=== PATIENT | female | born 1990 | race Caucasian/White ===

== ENCOUNTER 2018-09-22 16:02 | Emergency (ER) | payer SELFPAY ==
[2018-09-22 17:10] LABS: Urine Appearance TURBID; Urine Bilirubin NEGATIVE (NEG); Urine Blood 3+ (NEG); Urine Glucose NEGATIVE (NEG); Urine Protein 3+ (NEG); Urine Specific Gravity >=1.030 (1.005-1.030); Urine pH 6.5 (5.0-7.0)
[2018-09-22 17:17] LABS: Protime INR 1.05
[2018-09-22 17:18] LABS: Urine Color RED; Urine Microscopic Reflex ORDER UMIC
[2018-09-22 17:20] LABS: Urine Bacteria 20-50 /HPF (<20); Urine RBC TNTC /HPF (NONE SEEN)
[2018-09-22 17:21] LABS: Urine Culture Reflex Order REFLEXED
[2018-09-22 17:23] LABS: Absolute Lymphocytes (CBC) 1.8 K/uL (0.7-4.9); Absolute Monocytes 0.3 K/uL (0.1-1.3); Absolute Neutrophil 2.9 K/uL (1.8-8.0); Basophils % 1.1 % (0-1.3); Eosinophils % 1.7 % (0-4.4); Hematocrit 38.9 % (36.0-45.0); Lymphocytes % 34.6 % (15.3-44.8); MCH 30.6 pg (27.0-35.0); MCV 90.2 fL (80-100); MPV 8.6 fL (7.6-11.3); Monocytes % 6.4 % (3.3-12.3); RBC Red Blood Cell Count 4.32 M/uL (3.86-4.86)
[2018-09-22 17:28] LABS: ALT/SGPT 20 U/L (12-78); AST/SGOT 12 U/L (15-37); Albumin 3.9 g/dL (3.4-5.0); Alkaline Phosphatase 59 U/L (45-117); BUN Blood Urea Nitrogen 16 mg/dL (7-18); Bicarbonate 30 mmol/L (21-32); Bilirubin Direct 0.1 mg/dL (0-0.2); Bilirubin Total 0.4 mg/dL (0.2-1.0); CKMB Creatine Kinase MB < 1.0 ng/mL (0.3-3.6); Creatine Phosphokinase 79 U/L (26-192); Glucose Level 100 mg/dL (74-106); Lipase 203 U/L (73-393); Magnesium 2.4 mg/dL (1.8-2.4); Potassium 3.8 mmol/L (3.5-5.1); Protein, Total 7.1 g/dL (6.4-8.2); Sodium Level 141 mmol/L (136-145)
--- NOTE | 2018-09-22 18:22 | ER ---
Nurse's Notes [facility] Name: Suze Martinez Age: 28 yrs Sex: Female : 1990 Arrival Date: 09/22/2018 Time: 16:06 Bed 28 Private MD: Diagnosis: Hematuria, unspecified Presentation: 09/22 16:12 Presenting complaint: Patient states: "This morning I woke and when I went to the [facility] restroom it was just blood." Reports blood when she urinates but no drainage at other time. Patient states she has an IUD and hasn't had a period in years. Denies pain. Transition of care: patient was not received from another setting of care. Onset of symptoms was September 22, 2018. Risk Assessment: Do you want to hurt yourself or someone else? Patient reports no desire to harm self or others. Initial Sepsis Screen: Does the patient meet any 2 criteria? No. Patient's initial sepsis screen is negative. Does the patient have a suspected source of infection? No. Patient's initial sepsis screen is negative. Care prior to arrival: None. 16:12 Method Of Arrival: Ambulatory [facility] 16:12 Acuity: HANH 3 [facility] Triage Assessment: 16:14 General: Appears in no apparent distress. comfortable, Behavior is calm, cooperative, aj1 appropriate for age. Pain: Denies pain. Neuro: Level of Consciousness is awake, alert, obeys commands. Cardiovascular: Patient's skin is warm and dry. Respiratory: Airway is patent Respiratory effort is even, unlabored, Respiratory pattern is regular, symmetrical. : Reports bloody urine. 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 - Social history:: Smoking status: Patient/guardian denies using tobacco. - Ebola Screening: : Patient denies travel to an Ebola-affected area in the 21 days before illness onset. Screenin:30 Abuse screen: Denies threats or abuse. Denies injuries from another. Nutritional kr2 screening: No deficits noted. Tuberculosis screening: No symptoms or risk factors identified. Fall Risk None identified. Assessment: 16:30 General: Appears in no apparent distress. comfortable, well groomed, well developed, kr2 well nourished, Behavior is calm, cooperative, appropriate for age. Pain: Denies pain. Neuro: Level of Consciousness is awake, alert, obeys commands, Oriented to person, place, time, situation, Appropriate for age Import Specialist are equal bilaterally. Cardiovascular: Reports fatigue, Capillary refill < 3 seconds in bilateral fingers Patient's skin is warm and dry. Rhythm is regular. Respiratory: Airway is patent Respiratory effort is even, unlabored, Respiratory pattern is regular, symmetrical. GI: Abdomen is flat, non-distended, Abd is soft and non tender X 4 quads. : Urine is magy blood, Denies burning with urination, pain vaginal bleeding. EENT: Oral mucosa is moist. Derm: Skin is intact, is healthy with good turgor, Skin is pink, warm \\T\\ dry. Musculoskeletal: Circulation, motion, and sensation intact. 17:31 Reassessment: Patient appears in no apparent distress at this time. Patient and/or kr2 family updated on plan of care and expected duration. Pain level reassessed. Patient is alert, oriented x 3, equal unlabored respirations, skin warm/dry/pink. Patient denies pain at this time. 18:32 Reassessment: Patient appears in no apparent distress at this time. Patient and/or kr2 family updated on plan of care and expected duration. Pain level reassessed. Patient is alert, oriented x 3, equal unlabored respirations, skin warm/dry/pink. Patient denies pain at this time. Vital Signs: 16:14 BP 105 / 48; Pulse 79; Resp 18; Temp 98.3; Pulse Ox 100% on R/A; Weight 54.43 kg (R); aj1 Height 5 ft. 4 in. (162.56 cm) (R); Pain 0/10; 17:22 BP 103 / 62 Supine; Pulse 72; Resp 16; Pulse Ox 100% ; kr2 17:23 BP 107 / 66 Sitting; Pulse 75; Resp 16; Pulse Ox 100% ; kr2 17:24 BP 105 / 72 Standing; Pulse 76; Resp 18; Pulse Ox 100% ; kr2 18:32 BP 104 / 78; Pulse 73; Resp 17; Pulse Ox 99% on R/A; kr2 16:14 Body Mass Index 20.60 (54.43 kg, 162.56 cm) aj1 17:22 no dizziness or light headedness kr2 17:23 No dizziness or light headedness kr2 17:24 no dizziness or light headedness kr2 ED Course: 16:06 Patient arrived in ED. sb2 16:13 Triage completed. aj1 16:14 Arm band placed on Patient placed in an exam room. aj1 16:19 Joshua Flores PA is PHCP. cp 16:19 Simran Chow MD is Attending Physician. cp 16:30 Patient has correct armband on for positive identification. Bed in low position. Call kr2 light in reach. Side rails up X 1. Pulse ox on. NIBP on. Door closed. Head of bed elevated. 16:57 Inserted saline lock: 20 gauge in left antecubital area, using aseptic technique. Blood kr2 collected. 17:27 Migdalia Olguin, RN is Primary Nurse. kr2 18:21 Michel Joyce MD is Referral Physician. cp 18:33 No provider procedures requiring assistance completed. IV discontinued, intact, kr2 bleeding controlled, No redness/swelling at site. Pressure dressing applied. Administered Medications: No medications were administered Outcome: 18:22 Discharge ordered by . cp 18:33 Discharged to home ambulatory. kr2 18:33 Condition: stable 18:33 Discharge instructions given to patient, family, Instructed on discharge instructions, follow up and referral plans. medication usage, Demonstrated understanding of instructions, follow-up care, medications, Prescriptions given X 1. 18:36 Patient left the ED. kr2 Signatures: Francesca Miller, RN RN aj1 Joshua Flores PA PA cp Migdalia Olguin, RN RN kr2 Lexii Paulino sb2
--- NOTE | 2018-09-22 18:23 | EDPHYS ---
Physician Documentation [facility] Name: Suze Martinez Age: 28 yrs Sex: Female : 1990 Arrival Date: 09/22/2018 Time: 16:06 Bed 28 Private MD: ED Physician Simran Chow HPI: 09/22 16:35 This 28 yrs old Female presents to ER via Ambulatory with complaints of cp Urinary Problem. 16:35 The patient presents with urinary symptoms, hematuria. cp 16:35 Onset: The symptoms/episode began/occurred today. cp 16:35 Associated signs and symptoms: Pertinent negatives: dysuria, fever, nausea, vaginal cp bleeding, vaginal discharge, vomiting, back pain. 16:35 Severity of symptoms: in the emergency department the symptoms are unchanged, despite cp home interventions. The patient is sexually active. The patient's method of control includes IUD. 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 - Social history:: Smoking status: Patient/guardian denies using tobacco. - Ebola Screening: : Patient denies travel to an Ebola-affected area in the 21 days before illness onset. ROS: 16:42 Eyes: Negative for injury, pain, redness, and discharge. cp 16:42 Constitutional: Negative for body aches, chills, fever, poor PO intake. 16:42 ENT: Negative for drainage from ear(s), ear pain, sore throat, difficulty swallowing, difficulty handling secretions. 16:42 Cardiovascular: Negative for chest pain, edema, palpitations. 16:42 Respiratory: Negative for cough, shortness of breath, wheezing. 16:42 Abdomen/GI: Negative for abdominal pain, nausea, vomiting, and diarrhea, constipation, black/tarry stool, rectal bleeding. 16:42 Back: Negative for pain at rest, pain with movement, radiated pain. 16:42 : Positive for hematuria, Negative for urinary frequency, small amounts, pelvic pain, flank pain, burning with urination, difficulty urinating, vaginal bleeding, vaginal discharge. 16:42 Skin: Negative for cellulitis, rash. 16:42 Neuro: Negative for altered mental status, headache, syncope, near syncope, weakness. 16:42 All other systems are negative. Exam: 16:47 Constitutional: The patient appears in no acute distress, alert, awake, comfortable, cp non-toxic, well developed, well nourished. 16:47 Head/Face: Normocephalic, atraumatic. cp 16:47 Eyes: Periorbital structures: appear normal, Conjunctiva: normal, no exudate, no injection, Sclera: no appreciated abnormality, Lids and lashes: appear normal, bilaterally. 16:47 ENT: External ear(s): are unremarkable, Nose: is normal, Mouth: Lips: moist, Oral mucosa: pink and intact, moist, Posterior pharynx: is normal, airway is patent, no erythema, no exudate. 16:47 Chest/axilla: Inspection: normal, Palpation: is normal, no crepitus, no tenderness. 16:47 Cardiovascular: Rate: normal, Rhythm: regular. 16:47 Respiratory: the patient does not display signs of respiratory distress, Respirations: normal, no use of accessory muscles, no retractions, no splinting, no tachypnea, labored breathing, is not present, Breath sounds: are clear throughout, no decreased breath sounds, no stridor, no wheezing. 16:47 Abdomen/GI: Inspection: abdomen appears normal, Bowel sounds: active, all quadrants, Palpation: abdomen is soft and non-tender, in all quadrants. 16:47 Back: pain, is absent, ROM is normal, CVA tenderness, is absent. 16:47 Skin: cellulitis, is not appreciated, no rash present. Vital Signs: 16:14 BP 105 / 48; Pulse 79; Resp 18; Temp 98.3; Pulse Ox 100% on R/A; Weight 54.43 kg (R); aj1 Height 5 ft. 4 in. (162.56 cm) (R); Pain 0/10; 17:22 BP 103 / 62 Supine; Pulse 72; Resp 16; Pulse Ox 100% ; kr2 17:23 BP 107 / 66 Sitting; Pulse 75; Resp 16; Pulse Ox 100% ; kr2 17:24 BP 105 / 72 Standing; Pulse 76; Resp 18; Pulse Ox 100% ; kr2 18:32 BP 104 / 78; Pulse 73; Resp 17; Pulse Ox 99% on R/A; kr2 16:14 Body Mass Index 20.60 (54.43 kg, 162.56 cm) aj1 17:22 no dizziness or light headedness kr2 17:23 No dizziness or light headedness kr2 17:24 no dizziness or light headedness kr2 MDM: 16:19 Patient medically screened. cp 17:00 Differential diagnosis: ectopic , menorrhea, pelvic inflammatory disease, cp uterine fibroids, urinary tract infection, vaginosis. 18:20 Data reviewed: vital signs, nurses notes, lab test result(s), and as a result, I will cp discharge patient. 18:21 Counseling: I had a detailed discussion with the patient and/or guardian regarding: the cp historical points, exam findings, and any diagnostic results supporting the discharge/admit diagnosis, lab results, to return to the emergency department if symptoms worsen or persist or if there are any questions or concerns that arise at home. 18:21 Response to treatment: There is no appreciated change of the patient's symptoms at this cp time, and as a result, I will discharge patient. ED course: VSS. Labs reviewed and stable. Will treat with oral antibiotics and discharge to home for continued monitoring. 09/22 16:34 Order name: Basic Metabolic Panel 09/22 16:34 Order name: CBC with Diff; Complete Time: 18:06 cp 09/22 16:34 Order name: Creatinine for Radiology; Complete Time: 18:06 cp 09/22 16:34 Order name: Hepatic Function; Complete Time: 18:06 09/22 18:06 Interpretation: Normal except: AST 12. cp 09/22 16:34 Order name: Lipase; Complete Time: 18:06 cp 09/22 16:34 Order name: PT-INR; Complete Time: 18:06 cp 09/22 16:34 Order name: Ptt, Activated; Complete Time: 18:06 cp 09/22 16:34 Order name: CK; Complete Time: 18:06 cp 09/22 16:34 Order name: Ckmb; Complete Time: 18:06 cp 09/22 16:34 Order name: Magnesium; Complete Time: 18:06 cp 09/22 16:35 Order name: Basic Metabolic Panel; Complete Time: 18:06 EDMS 09/22 18:06 Interpretation: Normal except: CA 8.4. 09/22 16:36 Order name: UA; Complete Time: 18:06 aj1 09/22 16:58 Order name: Test, Serum; Complete Time: 18:06 kr2 09/22 16:34 Order name: Orthostatics; Complete Time: 17:04 09/22 16:34 Order name: IV Saline Lock; Complete Time: 17:04 09/22 16:34 Order name: Labs collected and sent; Complete Time: 17:04 09/22 17:21 Order name: Urine Microscopic Only; Complete Time: 18:06 EDFL 09/22 18:07 Interpretation: Normal except: UWBC 10-20; URBC TNTC; UBACT 20-50; SQEPI 5-10. 09/22 17:22 Order name: Urine Culture EDMS Administered Medications: No medications were administered Disposition: 09/22/18 18:22 Discharged to Home. Impression: Hematuria, unspecified. - Condition is Stable. - Discharge Instructions: Hematuria, Adult. - Prescriptions for Augmentin 875- 125 mg Oral Tablet - take 1 tablet by ORAL route every 12 hours for 7 days; 14 tablet. - Medication Reconciliation Form, Thank You Letter, Antibiotic Education, Prescription Opioid Use form. - Follow up: Michel Joyce MD; When: 1 week; Reason: symptoms continue. - Problem is new. - Symptoms are unchanged. Addendum: 09/26/2018 17:26 Co-signature as Attending Physician, Simran Chow MD. m a2 Signatures: Dispatcher [employer] [facility] Francesca Miller RN RN aj1 Joshua Flores PA PA cp Migdalia Olguin RN RN kr2 Simran Chow MD MD ma2 Corrections: (The following items were deleted from the chart) 09/22 17:03 16:34 Urine Test ordered. [facility] 17:04 16:34 Urine Dipstick-Ancillary ordered. cp kr2 17:21 16:35 UA MICROSCOPIC+U.LAB.BRZ ordered. [facility] EDFL 18:06 18:06 Normal except. cp 18:36 18:22 09/22/2018 18:22 Discharged to Home. Impression: Hematuria, unspecified. kr2 Condition is Stable. Forms are Medication Reconciliation Form, Thank You Letter, Antibiotic Education, Prescription Opioid Use. Follow up: Michel Joyce; When: 1 week; Reason: symptoms continue. Problem is new. Symptoms are unchanged. cp
== END 2018-09-22 18:36 | disposition home or self-care (01) ==
LOC: ER 16:02
DX: R31.9 Hematuria, unspecified (principal); Z97.5 Presence of (intrauterine) contraceptive device
CPT/HCPCS: 36415; 80048; 80076; 81003; 81015; 82550; 82553; 83690; 83735; 84703; 85025; 85610; 85730; 87086; 87088; 99284

== ENCOUNTER 2020-10-26 10:24 | Emergency (ER) | payer BC, OTHER ==
--- OUTSIDE RECORDS SUMMARY | 2020-10-26 10:30 | XMS REPORT | Summary of Care ---
:1990 Author Organization [facility] - Health Address [address] [place] [address] Care Team Providers Name Role Phone MD Parag Primary Care Provider Reason for Visit Reason Comments Procedure nexplanon removal Encounter Details Date Type Department Care Team Description 10/13/2020 Office Visit [facility] Women's Tegan Tuttle MD Encounter for Healthcare- [address] Nexplanon removal 146 [facility] (Primary Dx) [address], [address] [place] [phone] Allergies Active Allergy Reactions Severity Noted Date Comments Latex Hives 10/11/2013 documented as of this encounter (statuses as of 10/13/2020) Medications Medication Sig Dispensed Refills Start Date End Date Status doxylamine-pyridoxine, TAKE 2 TABLETS BY 0 0 Active vit B6, 10-10 mg per MOUTH ONCE DAILY tablet AT BEDTIME NEEDED FOR NAUSEA vit w/iron Take 1 tablet by 30 tablet 11 10/13/2020 Active fumarate and FA mouth daily. ( VITAMIN WITH MINERALS) tabletIndications: Encounter for Nexplanon removal documented as of this encounter (statuses as of 10/13/2020) Active Problems Problem Noted Date 39 weeks gestation of 11/29/2016 Multiparity 06/15/2016 Rubella non-immune status, antepartum 04/15/2016 Maternal varicella, non-immune 04/15/2016 Supervision of other high risk , antepartum 0 04/13/2016 documented as of this encounter (statuses as of 10/13/2020) Resolved Problems Problem Noted Date Resolved Date Tubal ligation status 11/29/2016 01/31/2017 Liveborn , of crabtree , born in hospital by 11/29/2016 01/31/2017 vaginal delivery Sterilization consult 09/29/2016 11/29/2016 Pelvic pressure in , antepartum, third trimester 11/29/2016 Leg cramps in 07/06/2016 11/29/2016 History of miscarriage, currently 06/15/2016 11/29/2016 History of delivery, currently 04/13/2016 11/29/2016 Overview: 2014 delivery 7 lb infant Vaginal bleeding in , first trimester 04/13/2016 11/29/2016 Immune to varicella 10/12/2013 04/15/2016 Rubella non-immune status, antepartum 10/12/2013 Chlamydia trachomatis infection of lower genitourinary sites 10/12/2013 04/13/2016 Supervision of normal 10/11/2013 04/13/20 16 BV (bacterial vaginosis) 10/11/2013 10/30/2013 Irregular periods/menstrual cycles 10/11/201310/30 documented as of this encounter (statuses as of 10/13/2020) Immunizations Name Administration Dates Next Due MMR 11/30/2016 TDAP 04/22/2011 Varicella (varivax)(chicken pox) 12/29/2016, 11/30/2016 documented as of this encounter Social History Tobacco Use Types Packs/Day Years Used Date Never Smoker Smokeless Tobacco: Never Used Alcohol Use Drinks/Week oz/Week Comments No 0 Standard drinks or equivalent 0.0 Sex Assigned at Date Recorded Not on file COVID-19 Exposure Response Date Recorded In the last month, have you been in contact with No / Unsure 10/13/2020 9:40 AM CIRCUS RIDER someone who was confirmed or suspected to have Coronavirus / COVID-19? documented as of this encounter Last Filed Vital Signs Vital Sign Reading Time Taken Comments Blood Pressure 103/59 10/13/2020 10:12 AM CIRCUS RIDER Pulse 74 10/13/2020 10:12 AM CIRCUS RIDER Temperature 36.8 C (98.3 F) 10/13/2020 10:12 AM CIRCUS RIDER Respiratory Rate 18 10/13/2020 10:12 AM CIRCUS RIDER Oxygen Saturation - - Inhaled Oxygen Concentration - - Weight 69.1 kg (152 lb 6 oz) 10/13/2020 10:12 AM CIRCUS RIDER Height 162.6 cm (5' 4") 10/13/2020 10:12 AM CIRCUS RIDER Body Mass Index 26.16 10/13/2020 10:12 AM CIRCUS RIDER documented in this encounter Patient Instructions Patient InstructionsTonia Addison RN - 10/13/2020 10:00 AM CST Patient Education Comfort Tips During can bring discomfort of different kinds. Below are tips for ways to feel better.Talk with yourhealthcare provider before using pain-relieving medicine at any time during your . First trimester tips Easing nausea Get up slowly. Eat a few unsalted crackers before you get out of bed. Avoid smells that bother you. Eat small,bland, low-fat, high-protein meals at frequent intervals. Sip on water, weaktea, or clear soft drinks, like kenney glen.Eat ice chips. Try taking vitamin B6. Coping with fatigue Take catnaps when you can. Get regular exercise. Accept help from others. Practice good sleep habits, like going to bed and getting up at the same time each day. Use your bed only for sleep and sex. Calming mood swings Talk about your feelings with others, including other mothers. Limit sugar, chocolate, and caffeine. Eat a healthy diet. Dont skip meals. Get regular exercise. Soothing headaches Get fresh air and exercise. Relax and get enough rest. Check with your healthcare provider before taking any pain medicines. Second trimester tips To limit ankle swelling, sit with your feet raised or wear support hose. If you have pain in your groin and stomach(round ligament pain), don't make sudden twisting movements with your body. For leg cramps, flexing your foot often brings immediate relief. Also try massaging your calf in long, downward strokes, or stretching your legs before going to bed. Get enough exercise and wear shoes with flexible soles. Eat foods rich in calcium. Third trimester tips Reducing heartburn Eat small, light meals throughout the day rather than 3 large ones. Sleep with your upper body raised 6 inches. Dont lie down until 2 hours after you eat. Don't eat greasy, fried, or spicy foods. Don't have citrus fruits or juices. Treating constipation Eat foods high in fiber, such as whole-grain foods, and fresh fruit and vegetables). Drink plenty of water. Get regular exercise. Ask about your healthcare provider about medicines that have docusate or psyllium. Taking care of your breasts Don't use harsh soaps or alcohol, which can make your skin too dry. Wear nursing bras. They provide more support than regular bras and can be used after ifyou breastfeed. Getting a good nights sleep Take a warm shower before bed. Sleep on a firm mattress. Lie on your side with 1 leg crossed over the other. Use pillows to support your arms, legs, and belly. Leveler last reviewed this educational content on 06/07/202019995421-8631 [employer]. All rights reserved. This information is not intended as a substitute for professional medical care. Always follow your healthcare professional's instructions. Patient Education Adapting to : First Trimester As your body adjusts during your first trimester of , you may have to change or limit your daily activities. Youll need more rest. You may also need to use the energy you have more wisely. Your changing body Almost every part of your body is affected as you adapt to . The uterus and cervix will start to soften right away. You may not look very during the first 3 months. But you are likelyto have some common signs of early : Nausea Fatigue Frequent urination Mood swings Bloating of the belly Constipation Heartburn Missed or light periods (first trimester bleeding) Nipple or breast tenderness and breast swelling Its not too late to start good habits What matters most is protecting your baby from this moment on. If you smoke, drink alcohol, or use drugs, now is the time to stop. If you need help, talk with your healthcare provider: Smoking increases the risk of stillbirthor having a [id number] baby. If you smoke, quit now. Alcohol and drugs have been linked with miscarriage, defects, intellectual disability, and low weight. Don't drink alcohol or take drugs. Tips to relieve nausea During , nausea can happen at any time of the day, but it may be worse in the morning. To help prevent nausea: Eat small, light meals at frequent intervals. Drink fluids often. Get up slowly. Eat a few unsalted crackers before you get out of bed. Avoid smells that bother you. Avoid spicy and fatty foods. Eat an ice popin your favorite flavor. Get plenty of rest. Ask your healthcare provider about taking kenney or vitamin B6 for nausea and vomiting. Talk with your healthcare provider if you take vitamins that upset your stomach. Work concerns The end of the first trimester is a good time to discuss working during with your employer. Follow your healthcare providers advice if your job needs you to stand for a long time, work with hazardous tools, or even sit at a desk all day. Your workspace, workload, or scheduled hours may need to be adjusted. Perhaps you can change body postures more often or take an extra break. Advice for travel Talk to your healthcare provider first, but the second trimester may be the best time for any travel. You may be advised to avoid certain trips while youre . Food and water can be concerns in developing countries. Travel by car is a good choice, as you can stop, get out, and stretch. Bring snacks and water along. Fasten the lap belt below your belly, low over your hips. Also be sure to wear the shoulder harness. Intimacy Unless your healthcare provider tells you to, there's no reason to stop having sex while youre . You or your partner may notice changes in desire. Desire may be less in the first trimester, due to nausea and fatigue. In the second trimester, sex may be very enjoyable. The third trimester can be a challenge comfort-fischer. Try different positions and see whats best for you both. Leveler last reviewed this educational content on 02/06/202019994642-0494 [employer]. All rights reserved. This information is not intended as a substitute for professional medical care. Always follow your healthcare professional's instructions. Patient Education : Your First Trimester Changes The first trimester is a time of rapid development for your baby. Because your baby is growing so quickly, it is important that you start a healthy lifestyle right away. By the end of the first trimester, your baby has formed all of its major body organs and weighs just over an ounce. Actual size of baby is 1/4" Month 1 (weeks 1 to 4) The placenta (the organ that nourishes your baby) begins to form. Thebrain, spinal cord,heart,gastrointestinal tract,and lungs begin to develop. Your baby is about inch long by the end of the first month. Actual size of baby is 1" Month 2 (weeks 5 to 8) All of your babys major body organs form. The face, fingers, toes, ears, and eyes appear. By the end of the month, your baby is about 1 inch long. Actual size of baby is 3" Month 3 (weeks 9 to 12) Your baby can open and close its fists and mouth. The sexual organs begin to form. As the first trimester ends, your baby is about 3 inches long. Yieldr reviewed this educational content on 06/07/202019997968-4140 [employer]. All rights reserved. This information is not intended as a substitute for professional medical care. Always follow your healthcare professional's instructions. US RIDER documented in this encounter Progress Notes Tegan Tuttle MD - 10/13/2020 10:00 AM CSTNEXPLANON REMOVAL PROCEDURE NOTE Preoperative Diagnoses: The risks, benefits and alternatives were discussed. The patient voiced her understanding. She wished to proceed and an informed consent was obtained. Patient has been identified by name and and will be undergoing Nexplanon removal. Patient, procedure and site have been confirmed by the following clinicians: Tegan Tuttle MD and Tonia Rios RN. Timeout performed by Tegan Tuttle at 1020. Procedure: The patient is placed on the exam table in a supine position. The implant was palpated onthe inner aspect of the left arm. The Nexplanon implant site is prepped with betadine. Local area isinjected subcutaneously with 3 cc of lidocaine 1% with epinephrine along the planned incision site. A small incision is made with a sterile scalpel. Straight hemostat is used to access the implant through the incision site. The implant is secured with the hemostat and carefully removed through the incision. There is minimal bleeding from the incision site. Sterile gauze and a pressure dressing is placed over the removal site. The patient tolerated the procedure well and there were no complications. Post-procedure instructions given. Patient verbalized understanding. Findings S/p Nexplanon removal Assessment S/p Nexplanon removal, take a vitamin Plan Follow up for care, 11w1d by abdominal US today documented in this encounter Plan of Treatment Health Maintenance Due Date Last Done Comments PAP SMEAR 02/03/2020 02/02/2017, 10/11/2013 INFLUENZA VACCINE (#1) 2020 DTaP,Tdap,and Td Vaccines (2 04/22/2021 04/22/2011 - Td) Depression Screening 08/21/2021 08/21/2020 VARICELLA VACCINES Completed 12/29/2016, 11/30/2016 PNEUMOCOCCAL 0-64 YEARS Aged Out No longe r eligible based COMBINED SERIES on patient's age to complete this to [facility] documented as of this encounter Results Not on filedocumented in this encounter Visit Diagnoses Diagnosis Encounter for Nexplanon removal - Primar y Surveillance of previously prescribed im plantable subdermal contraceptive documented in this encounter documented as of this encounter
--- OUTSIDE RECORDS SUMMARY | 2020-10-26 10:30 | XMS REPORT | Summary of Care ---
:1990 Author Organization [facility] - [facility] Address [address] [place] [id number] Care Team Providers Name Role Phone MD Parag Primary Care Provider Reason for Visit Reason Comments NEXPLANON insertion Encounter Details Date Type Department Care Team Description 08/22/2020 Office Visit [facility] Women's Tegan Tuttle MD Nexplanon insertion [facility]- [address] (Primary Dx) [address] [facility] [address] [facility] [address] [place] [phone] Allergies Active Allergy Reactions Severity Noted Date Comments Latex Hives 10/11/2013 documented as of this encounter (statuses as of 08/22/2020) Medications Hospital, Clinic, or Other Ordered Dose Route Frequency Start Date End Date Status Facility Administered Medication etonogestreL (NEXPLANON) 68 mg Sdrm ONCE 08/22/202008/07 Ended implant 68 mgIndications: Nexplanon insertion documented as of this encounter (statuses as of 08/22/2020) Active Problems Problem Noted Date 39 weeks gestation of 11/29/2016 Multiparity 06/15/2016 Rubella non-immune status, antepartum 04/15/2016 Maternal varicella, non-immune 04/15/2016 Supervision of other high risk , antepartum 0 04/13/2016 documented as of this encounter (statuses as of 08/22/2020) Resolved Problems Problem Noted Date Resolved Date Tubal ligation status 11/29/2016 01/31/2017 Liveborn , of crabtree , born in hospital by 11/29/2016 01/31/2017 vaginal delivery Sterilization consult 09/29/2016 11/29/2016 Pelvic pressure in , antepartum, third trimester 11/29/2016 Leg cramps in 07/06/2016 11/29/2016 History of miscarriage, currently 06/15/2016 11/29/2016 History of delivery, currently 04/13/2016 11/29/2016 Overview: 2014 delivery 7 lb Vaginal bleeding in , first trimester 04/13/2016 11/29/2016 Immune to varicella 10/12/2013 04/15/2016 Rubella non-immune status, antepartum 10/12/2013 Chlamydia trachomatis infection of lower genitourinary sites 10/12/2013 04/13/2016 Supervision of normal 10/11/2013 04/13/20 16 BV (bacterial vaginosis) 10/11/2013 10/30/2013 Irregular periods/menstrual cycles 10/11/201310/30 documented as of this encounter (statuses as of 08/22/2020) Immunizations Name Administration Dates Next Due MMR [...] been in contact with No / Unsure 08/22/2020 8:20 AM CDT someone who was confirmed or suspected to have Coronavirus / COVID-19? documented as of this encounter Last Filed Vital Signs Vital Sign Reading Time Taken Comments Blood Pressure 101/63 08/22/2020 8:54 AM CDT Pulse 71 08/22/2020 8:54 AM CDT Temperature 37 C (98.6 F) 08/22/2020 8:54 AM CDT Respiratory Rate 18 08/22/2020 8:54 AM CDT Oxygen Saturation - - Inhaled Oxygen Concentration - - Weight 65.9 kg (145 lb 4 oz) 08/22/2020 8:54 AM CDT Height 162.6 cm (5' 4") 08/22/2020 8:54 AM CDT Body Mass Index 24.93 08/22/2020 8:54 AM CDT documented in this encounter Patient Instructions Patient InstructionsTonia Addison RN - 08/22/2020 8:30 AM CDT Patient Education Etonogestrel implant What is this medicine? ETONOGESTREL (et [place] edward BLANK trel) is a contraceptive ( control) device. It is used to prevent . It can be used for up to 3 years. How should I use this medicine? This device is inserted just under the skin on the inner side of your upper arm by a health wound care center consultant. Talk to your preassembler printed circuit board regarding the use of this medicine in children. Special care may be needed. What side effects may I notice from receiving this medicine? Side effects that you should report to your doctor or health wound care center consultant as soon as possible: allergic reactions like skin rash, itching or hives, swelling of the face, lips, or tongue breast lumps changes in emotions or moods depressed mood heavy or prolonged menstrual bleeding pain, irritation, swelling, or bruising at the insertion site scar at site of insertion signs of infection at the insertion site such as fever, and skin redness, pain or discharge signs of signs and symptoms of a blood clot such as breathing problems; changes in vision; chest pain; severe, sudden headache; pain, swelling, warmth in the leg; trouble speaking; sudden numbness or weakness of the face, arm or leg signs and symptoms of liver injury like dark yellow or brown urine; general ill feeling or flu-like symptoms; light-colored stools; loss of appetite; nausea; right upper belly pain; unusually weak or tired; yellowing of the eyes or skin unusual vaginal bleeding, discharge signs and symptoms of a stroke like changes in vision; confusion; trouble speaking or understanding; severe headaches; sudden numbness or weakness of the face, arm or leg; trouble walking; dizziness; loss of balance or coordination Side effects that usually do not require medical attention (report to your doctor or health wound care center consultant if they continue or are bothersome): acne back pain breast pain changes in weight dizziness general ill feeling or flu-like symptoms headache irregular menstrual bleeding nausea sore throat vaginal irritation or inflammation What may interact with this medicine? Do not take this medicine with any of the following medications: amprenavir bosentan fosamprenavir This medicine may also interact with the following medications: barbiturate medicines for inducing sleep or treating seizures certain medicines for fungal infections like ketoconazole and itraconazole grapefruit juice griseofulvin medicines to treat seizures like carbamazepine, felbamate, oxcarbazepine, phenytoin, topiramate modafinil phenylbutazone rifampin rufinamide some medicines to treat HIV infection like atazanavir, indinavir, lopinavir, nelfinavir, tipranavir, ritonavir Barrett's wort What if I miss a dose? This does not apply. Where should I keep my medicine? This drug is given in a hospital or clinic and will not be stored at home. What should I tell my health care provider before I take this medicine? They need to know if you have any of these conditions: abnormal vaginal bleeding blood vessel disease or blood clots cancer of the breast, cervix, or liver depression diabetes gallbladder disease headaches heart disease or recent heart attack high blood pressure high cholesterol kidney disease liver disease renal disease seizures tobacco smoker an unusual or allergic reaction to etonogestrel, other hormones, anesthetics or antiseptics, medicines, foods, dyes, or preservatives or trying to get breast-feeding What should I watch for while using this medicine? This product does not protect you against HIV infection (AIDS) or other sexually transmitted diseases. You should be able to feel the implant by pressing your fingertips over the skin where it was inserted. Contact your doctor if you cannot feel the implant, and use a non-hormonal control method (such as condoms) until your doctor confirms that the implant is in place. If you feel that the implant may have broken or become bent while in your arm, contact your healthcare provider. NOTE:This sheet is a summary. It may not cover all possible information. If you have questions aboutthis medicine, talk to your doctor, pharmacist, or health care provider. Copyright 2018 [employer]vier documented in this encounter Progress Notes Tegan Tuttle MD - 08/22/2020 8:30 AM CDTNEXPLANON PLACEMENT PROCEDURE NOTE Preoperative Diagnoses: Desires contraception The risks, benefits and alternatives were discussed. The patient voiced her understanding. She wished to proceed and an informed consent was obtained. Patient has been identified by name and and will be undergoing Nexplanon placement. Patient desires Nexplanon to be placed in her left arm. Patient, procedure and site have been confirmed by the following clinicians: Tegan Tuttle MD and Tonia Rios RN. Timeout performed by Tegan Tuttle at 0915. Procedure: The patient was placed in the supine position. The patient desired placement of Nexplanoninto the left arm. An area 8-10 cm medial to the medial epicondyle of the humerus was measured approximately 4 cm below the crease between the triceps and biceps muscle and the area was marked and prepped in the usual sterile fashion. 1% lidocaine was injected to obtain anesthesia. The Nexplanon insertion applicator was inserted into the skin at a 30 degree angle until the bevel was entirely under the skin. The device was then lowered to parallel to the skin and inserted. The applicator was held in place and the needle was fully advanced. The slider was unlocked, withdrawn, and the applicator was removed. The Nexplanon laney was easily palpable beneath the skin and correct insertion placement was confirmed with palpation by both provider and patient. Steri strips applied. A pressure dressing was placed. The patient tolerated the procedure well and there were no complications. Post-procedure instructions given. Patient verbalized understanding. Findings Nexplanon placement correct, patient can feel Nexplanon Assessment Patient is s/p correct placement of Nexplanon Plan Return PRN Nexplanon Lot #: [id number] Expiration date: 09/15/2022 Year removal date: 2024 Patient palpated implant: Yes documented in this encounter Plan of Treatment Health Maintenance Due Date Last Done Comments PAP SMEAR 02/03/2020 02/02/2017, 10/11/2013 INFLUENZA VACCINE (#1) 2020 DTaP,Tdap,and Td Vaccines (2 04/22/2021 04/22/2011 - Td) Depression Screening 08/21/2021 08/21/2020 VARICELLA VACCINES Completed 12/29/2016, 11/30/2016 PNEUMOCOCCAL 0-64 YEARS Aged Out No longe r eligible based COMBINED SERIES on patient's age to complete this to pic documented as of this encounter Procedures Procedure Name Priority Date/Time Associated Diagnosis Comme nts POCT TEST Routine 08/22/2020 Nexplanon insertion R esults for this procedure are i n the results section . documented in this encounter Results POCT TEST (08/22/2020) Pathologist Sig nature POCT PREG Negative On board controls acceptable Yes with C Line POCT PREG LOT # POCT PREG TEST DATE Specimen Urine - URINE, CLEAN CATCH documented in this encounter Visit Diagnoses Diagnosis Nexplanon insertion - Primary Insertion of implantable subdermal contr aceptive documented in this encounter Administered Medications Medication Order MAR Action Action Date Dose Rate Site etonogestreL (NEXPLANON) implant Given 08/22/2020 9:29 AM CDT 6 8 mg 68 mg 68 mg, Subdermal, ONCE, 1 dose, Tue08/22/20 at 1030, Routine, Use approved by: REGISTRAR [employer]USEUM documented in this encounter documented as of this encounter
--- OUTSIDE RECORDS SUMMARY | 2020-10-26 10:30 | XMS REPORT | Summary of Care ---
:1990 Author Organization [facility] - Health Address [address] [place] [address] Care Team Providers Name Role Phone MD Parag Primary Care Provider Reason for Visit Reason Comments Procedure nexplanon removal Encounter Details Date Type Department Care Team Description 10/13/2020 Office Visit [facility] Women's Tegan Tuttle MD Encounter for Healthcare- [address] Nexplanon removal 146 [facility] [address] [address], [address] [place] [phone] Allergies Active Allergy Reactions Severity Noted Date [...] with No / Unsure 10/13/2020 9:40 AM STUDIO ARTIST someone who was confirmed or suspected to have Coronavirus / COVID-19? documented as of this encounter Last Filed Vital Signs Vital Sign Reading Time Taken Comments Blood Pressure 103/59 10/13/2020 10:12 AM STUDIO ARTIST Pulse 74 10/13/2020 10:12 AM STUDIO ARTIST Temperature 36.8 C (98.3 F) 10/13/2020 10:12 AM STUDIO ARTIST Respiratory Rate 18 10/13/2020 10:12 AM STUDIO ARTIST Oxygen Saturation - - Inhaled Oxygen Concentration - - Weight 69.1 kg (152 lb 6 oz) 10/13/2020 10:12 AM STUDIO ARTIST Height 162.6 cm (5' 4") 10/13/2020 10:12 AM STUDIO ARTIST Body Mass Index 26.16 10/13/2020 10:12 AM STUDIO ARTIST documented in this encounter Patient Instructions Patient [...] to support your arms, legs, and belly. [employer] last reviewed this educational content on 06/07/202019992613-9819 [employer]. All rights reserved. This information is not [...] increases the risk of stillbirthor having a cnt-bmndb-hqqpeu baby. If you smoke, quit now. Alcohol [...] and see whats best for you both. [employer] last reviewed this educational content on 02/06/202019992468-0431 [employer]. All rights reserved. This information is not [...] your baby is about 3 inches long. Backyard reviewed this educational content on 06/07/202019993823-4160 [employer]. All rights reserved. This information is not intended as a substitute for professional medical care. Always follow your healthcare professional's instructions. IO ARTIST documented in this encounter Progress Notes Tegan [...] on patient's age to [facility] documented as of this encounter Results Not on filedocumented in this encounter Visit Diagnoses Diagnosis Encounter for Nexplanon removal - Primar y Surveillance of previously prescribed im plantable subdermal contraceptive documented in this encounter documented as of this encounter
--- OUTSIDE RECORDS SUMMARY | 2020-10-26 10:30 | XMS REPORT | Summary of Care ---
:1990 Author Organization [facility] - Health Address [address] [place] [address] Care Team Providers Name Role Phone MD Parag Primary Care Provider Encounter Details Date Type Department Care Team Description 10/13/2020 Orders Only [facility] Doctor Unassigned, No 301 [facility] Name [place] [id number] [place] [address] Allergies Active Allergy Reactions Severity Noted Date Comments Latex Hives 10/11/2013 documented as of this encounter (statuses as of 10/15/2020) Medications Medication Sig Dispensed Refills Start Date [...] as of this encounter (statuses as of 10/15/2020) Active Problems Problem Noted Date 39 weeks gestation of 11/29/2016 Multiparity 06/15/2016 Rubella non-immune status, antepartum 04/15/2016 Maternal varicella, non-immune 04/15/2016 Supervision of other high risk , antepartum 0 04/13/2016 documented as of this encounter (statuses as of 10/15/2020) Resolved Problems Problem Noted Date Resolved Date [...] as of this encounter (statuses as of 10/15/2020) Immunizations Name Administration Dates Next Due MMR [...] with No / Unsure 10/13/2020 9:40 AM FOOD SERVICE COUNTER CLERK someone who was confirmed or suspected to have Coronavirus / COVID-19? documented as of this encounter Last Filed Vital Signs Not on filedocumented in this encounter Plan of Treatment Health [...] Name Priority Date/Time Associated Diagnosis Comme nts DISCLOSURE AND CONSENT, Routine 10/13/2020 12:01 AM MEDICAL AND SURGICAL FOOD SERVICE COUNTER CLERK PROCEDURES documented in this encounter Results Not on filedocumented in this encounter Insurance Payer Benefit Plan / Group Subscriber ID Effective Dates Phone Address Type [facility] [id number] 2020-Present PPO documented as of this encounter
--- OUTSIDE RECORDS SUMMARY | 2020-10-26 10:30 | XMS REPORT | Summary of Care ---
:1990 Author Organization [facility] Address [address] [place] [address] Care Team Providers Name Role Phone MD Parag Primary Care Provider Reason for Visit Reason Comments NEXPLANON insertion Encounter Details Date Type Department Care Team Description 08/22/2020 Office Visit [facility] Women's Tegan Tuttle MD Nexplanon insertion [facility]- [address] (Primary Dx) 146 [facility] [address] [facility] [address] [place] [phone] Allergies Active Allergy Reactions Severity Noted [...] of your upper arm by a health day care center director. Talk to your employment evaluator/case manager regarding the use of this medicine in children. Special care may be needed. What side effects may I notice from receiving this medicine? Side effects that you should report to your doctor or health day care center director as soon as possible: allergic reactions like [...] attention (report to your doctor or health day care center director if they continue or are bothersome): acne [...] like atazanavir, indinavir, lopinavir, nelfinavir, tipranavir, ritonavir [place]'s wort What if I miss a dose? [...] Nexplanon Plan Return PRN Nexplanon Lot #: [id number] Expiration date: 09/15/2022 Year removal date: 2024 [...] Tue08/22/20 at 1030, Routine, Use approved by: HOOP FLARING MACHINE OPERATOR HELPER documented in this encounter documented as of this encounter
--- OUTSIDE RECORDS SUMMARY | 2020-10-26 10:30 | XMS REPORT | Summary of Care ---
:1990 Author Organization [facility] Address [address] [place] [address] Care Team Providers Name Role Phone MD Parag Primary Care Provider Reason for Visit Reason Comments Assessment -had nexplanon place d 1016 Appointment Nexplanon removal Encounter Details Date Type Department Care Team Description 10/03/2020 Telephone [facility] Women's RidleyManju MD Assessment Healthcare- [address] (-had [address] [place] [address] DR. galvan [facility], [address] [place] [address]); Appointment [place], [place] [address] (Nexplanon removal) [phone] Allergies Active Allergy Reactions Severity Noted Date Comments Latex Hives 10/11/2013 documented as of this encounter (statuses as of 10/06/2020) Medications No known medicationsdocumented as of this encounter (statuses as of 10/06/2020) Active Problems Problem Noted Date 39 weeks gestation of 11/29/2016 Multiparity 06/15/2016 Rubella non-immune status, antepartum 04/15/2016 Maternal varicella, non-immune 04/15/2016 Supervision of other high risk , antepartum 0 04/13/2016 documented as of this encounter (statuses as of 10/06/2020) Resolved Problems Problem Noted Date Resolved Date [...] as of this encounter (statuses as of 10/06/2020) Immunizations Name Administration Dates Next Due MMR 11/30/2016 TDAP 04/22/2011 Varicella (varivax)(chicken pox) 12/29/2016, 11/30/2016 documented as of this encounter Social History Tobacco Use Types Packs/Day Years Used Date Never Smoker Smokeless Tobacco: Never Used Alcohol Use Drinks/Week oz/Week Comments No 0 Standard drinks or equivalent 0.0 Sex Assigned at Date Recorded Not on file documented as of this encounter Last Filed Vital Signs Not on filedocumented in this encounter Miscellaneous Notes Telephone Encounter - Hema Zuluaga - 10/06/2020 11:20 AM CSTPatient states she was [facility] Positive UPT w/ Usg denoting a fetus 10w 4d up to 14 weeks per patient Nexplanon Insertion was done 09/22/2020 w/ Dr. Tuttle. Patient has appointment with Dr. Ridley on October 08 for evaluation. Patient denied any other symptoms or concerns. Reassured patient that waiting until October 08 was okay. Nexplanon is progesterone only and should not cause any significant harm to the . Advised to keep appointment. Patient verbalized her understanding. elephone Encounter - Lynnette Sandoval S - 10/06/2020 9:57 AM CSTPatient called back, needing to speak to the nurse. elephone Encounter - Lisette Lovell - 10/03/2020 8:33 AM CSTBridgemissy Mckeon is a 30 year old female Went to the ER yesterday for stomach pain. They told her she was and needed to get the Nexplanon removed yoselyn. Please call. documented in this encounter Plan of Treatment Date Type Specialty Care Team Description 10/08/2020 Initial Obstetrics & Ridley, Manju Robison MD Visit Gynecology [address] [place] [address] DR. [place], [place] [address] [phone] Health Maintenance Due Date Last Done Comments PAP SMEAR 02/03/2020 02/02/2017, 10/11/2013 INFLUENZA VACCINE (#1) 2020 DTaP,Tdap,and Td Vaccines (2 04/22/2021 04/22/2011 - Td) Depression Screening 08/21/2021 08/21/2020 VARICELLA VACCINES Completed 12/29/2016, 11/30/2016 PNEUMOCOCCAL 0-64 YEARS Aged Out No longe r eligible based COMBINED SERIES on patient's age to complete this to pic documented as of this encounter Results Not on filedocumented in this encounter Insurance Payer Benefit Plan / Group Subscriber ID Effective Dates Phone Address Type [facility] [id number] 2020-Present PPO documented as of this encounter
--- OUTSIDE RECORDS SUMMARY | 2020-10-26 10:30 | XMS REPORT | Continuity of Care Document ---
:1990 Author Organization [facility] t Address [address] [place] [address] Care Team Providers Name Role Phone Parag GOODMAN Attending Clinician Doctor Unassigned, Name Attending Clinician Unavailable Problems This patient has no known problems. Allergies, Adverse Reactions, Alerts This patient has no known allergies or adverse reactions. Medications This patient has no known medications. Procedures This patient has no known procedures. Encounters Start End Encounter Admission Attending Care Care Encounter Source Date/Time Date/Time Type Type Clinicians Facility Department ID 2020-10-13 2020-10-13 Office Tegan Tuttle [facility] [id number] 09:56:00 10:47:24 Visit [place] [id number] [place] [id number] Denise [phone] [address] 2020-10-13 2020-10-13 Orders Doctor RACHANA [id number] 00:00:00 00:00:00 Only UnassignedSHANTAL [id number] [place] [phone] [id number] Results This patient has no known results.
--- OUTSIDE RECORDS SUMMARY | 2020-10-26 10:30 | XMS REPORT | Summary of Care ---
:1990 Author Organization [facility] - Health Address [address] [place] [address] Care Team Providers Name Role Phone MD Parag Primary Care Provider Encounter Details Date Type Department Care Team Description 08/21/2020 Orders Only [facility] Doctor Unassigned, No 301 [facility] [place] [address] [place] [address] Allergies Active Allergy Reactions Severity Noted Date Comments Latex Hives 10/11/2013 documented as of this encounter (statuses as of 08/21/2020) Medications Medication Sig Dispensed Refills Start Date End Date Status calcium-vitamin D Take 1 tablet by 90 tablet 1 07/06/2016 Active (OS-GLORIA 500+D) 500 mouth 3 (three) mg(1,250mg) -200 unit times daily with per meals. tabletIndications: Leg cramps in butalbital-acetaminop Take 1 tablet by 30 tablet 0 10/27/2016 Active hen-caff (ESGIC) mouth every 4 50-325-40 mg tablet (four) hours as needed for Headache. Please call if headaches are unrelieved. vitamin w/FA Take 1 tablet by 100 tablet 3 11/30/2016 Active tablet mouth daily. docusate calcium 240 Take 1 capsule by 60 capsule 1 11/30/2016 Active mg capsule mouth once daily as needed for Constipation. ferrous sulfate 325 Take 1 tablet by 60 tablet 2 11/30/2016 Active mg (65 mg iron) mouth 2 (two) tablet times daily. ibuprofen 600 mg Take 1 tablet by 30 tablet 0 11/30/2016 Active tablet mouth every 6 (six) hours as needed for Pain (scale 1-3) or Pain (scale 4-6). Take with food or milk. azithromycin Take 1 tablet by 1 Package 0 11/24/2017 Active (ZITHROMAX Z-OMARI) 250 mouth mg tablet SEE-INSTRUCTIONS. Take 500 mg day 1, then 250 mg days 2 to 5. documented as of this encounter (statuses as of 08/21/2020) Active Problems Problem Noted Date 39 weeks gestation of 11/29/2016 Multiparity 06/15/2016 Rubella non-immune status, antepartum 04/15/2016 Maternal varicella, non-immune 04/15/2016 Supervision of other high risk , antepartum 0 04/13/2016 documented as of this encounter (statuses as of 08/21/2020) Resolved Problems Problem Noted Date Resolved Date Tubal ligation status 11/29/2016 01/31/2017 Liveborn infant, of [place] , born in hospital by [...] as of this encounter (statuses as of 08/21/2020) Immunizations Name Administration Dates Next Due MMR [...] Health Maintenance Due Date Last Done Comments Depression Screening 2001 PAP SMEAR 02/03/2020 02/02/2017, 10/11/2013 INFLUENZA VACCINE (#1) 2020 DTaP,Tdap,and Td Vaccines (2 04/22/2021 04/22/2011 - Td) VARICELLA VACCINES Completed 12/29/2016, 11/30/2016 PNEUMOCOCCAL 0-64 YEARS Aged Out No longe r eligible based COMBINED SERIES on patient's age to complete this to [facility] documented as of this encounter Procedures Procedure Name Priority Date/Time Associated Diagnosis Comme nts ASSIGNMENT OF BENEFITS Routine 08/21/2020 2:50 PM CDT documented in this encounter Results Not on filedocumented in this encounter Insurance Payer Benefit Plan / Group Subscriber ID Effective Dates Phone Address Type [facility] [id number] 2020-Present PPO documented as of this encounter
[2020-10-26 11:34] LABS: Absolute Lymphocytes (CBC) 0.9 K/uL (0.7-4.9); Basophils % 0.7 % (0-1.3); Lymphocytes % 16.6 % (15.3-44.8); MPV 8.5 fL (7.6-11.3); RBC Red Blood Cell Count 3.95 M/uL (3.86-4.86)
[2020-10-26 11:54] LABS: Urine Blood 3+ (NEG); Urine Glucose NEGATIVE (NEG); Urine Protein 3+ (NEG); Urine pH 8.5 (5.0-7.0)
[2020-10-26 12:06] LABS: Urine Bacteria <20 /HPF (<20); Urine RBC 20-50 /HPF (NONE SEEN)
[2020-10-26 12:08] LABS: BUN Blood Urea Nitrogen 7 mg/dL (7-18); Bicarbonate 25 mmol/L (21-32); Glucose Level 82 mg/dL (74-106); HCG, Quantitative 21937 mIU/mL (1-3); Potassium 3.7 mmol/L (3.5-5.1); Sodium Level 140 mmol/L (136-145)
--- NOTE | 2020-10-26 12:17 | RAD REPORT ---
EXAM DESCRIPTION: US - 1St Trimest Single 1St Fetus - 10/26/2020 12:03 pm CLINICAL HISTORY: VAGINAL BLEEDING Early . COMPARISON: No comparisons FINDINGS: A single gestational sac is seen within the uterus.Single breech positioned fetus is pres ent. The shape of the sac is within normal limits for gestational age. Within the sac is a single fet us with crown-rump length of 8.2 cm, correlating to estimated gestational age of 14 weeks 1 day. Bambi mated date of delivery is 04/25/2021. Heart rate is 139 BPM.. Grade 1 placenta, mildly low-lying and posteriorly positioned. The maternal adnexa and ovaries are within normal limits. Normal Doppler blood flow was demonstrated to both ovaries. IMPRESSION: Single live intrauterine fetus with estimated gestational age of 14 weeks 1 day, LOBO . Posterior low-lying placenta.
--- NOTE | 2020-10-26 12:18 | EDPHYS ---
Physician Documentation [facility] Name: Suze Mckeon Age: 30 yrs Sex: Female : 1990 Arrival Date: 10/26/2020 Time: 10:27 Bed 4 Private MD: ED Physician Judd Summers HPI: 10/26 10:49 This 30 yrs old Female presents to ER via Ambulatory with complaints of jmm Vaginal Bleeding 13 Weeks Preg. 10:49 The patient presents to the emergency department with vaginal bleeding, that is light, jmm with no clots. course: care: private OB physician. The patient has not experienced similar symptoms in the past. This is a 30 year old female that presents to the ED with complaints of pelvic cramping and light bleeding after urination. Denies fever, vomiting, dysuria. . 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 - Social history:: Smoking status: Patient denies any tobacco usage or history of. Patient/guardian denies using street drugs. ROS: 10:49 Constitutional: Negative for fever, chills, and weight loss, Cardiovascular: Negative jmm for chest pain, palpitations, and edema, Respiratory: Negative for shortness of breath, cough, wheezing, and pleuritic chest pain. 10:49 Abdomen/GI: Positive for abdominal pain. 10:49 : Positive for vaginal bleeding. 10:49 All other systems are negative. Exam: 10:49 Constitutional: This is a well developed, well nourished patient who is awake, alert, jmm and in no acute distress. Head/Face: atraumatic. Eyes: EOMI, no conjunctival erythema appreciated ENT: Moist Mucus Membranes Neck: Trachea midline, Supple Chest/axilla: Normal chest wall appearance and motion. Cardiovascular: Regular rate and rhythm. No edema appreciated Respiratory: Normal respirations, no respiratory distress appreciated Abdomen/GI: Non distended, soft Back: Normal ROM Skin: General appearance color normal MS/ Extremity: Moves all extremities, no obvious deformities appreciated, no edema noted to the lower extremities Neuro: Awake and alert, normal gait Psych: Behavior is normal, Mood is normal, Patient is cooperative and pleasant Vital Signs: 10:36 BP 114 / 64; Pulse 80; Resp 16; Temp 97.8; Pulse Ox 100% ; Weight 69.85 kg; Height 5 sv ft. 4 in. (162.56 cm); 11:48 BP 108 / 49; Pulse 70; Resp 18; Pulse Ox 100% on R/A; ph 12:37 BP 119 / 60; Pulse 75; Resp 17; Pulse Ox 100% ; ll1 10:36 Body Mass Index 26.43 (69.85 kg, 162.56 cm) sv MDM: 10:44 Patient medically screened. [facility] 12:15 Data reviewed: vital signs, nurses notes. Counseling: I had a detailed discussion with randall the patient and/or guardian regarding: the historical points, exam findings, and any diagnostic results supporting the discharge/admit diagnosis, lab results, radiology results, the need for outpatient follow up, to return to the emergency department if symptoms worsen or persist or if there are any questions or concerns that arise at home. ED course: Patient is alert and non toxic in appearance in the ED. US wnl. UA concerning for uti. Will treat with oral abx. Patient is otherwise given strict return precautions. Patient will otheriwise follow up with obgyn in 1 to 2 days for reevaluation. . 10/26 10:58 Order name: Quantitative Hcg [facility] 10/26 10:58 Order name: Abo/rh Typing; Complete Time: 12:03 [facility] 10/26 10:58 Order name: Basic Metabolic Panel; Complete Time: 12:14 [facility] 10/26 10:58 Order name: CBC with Diff; Complete Time: 11:42 [facility] 10/26 10:58 Order name: HCG, Quantitative; Complete Time: 12:14 [facility] 10/26 11:26 Order name: Urine Microscopic Only; Complete Time: 12:14 [facility] 10/26 10:58 Order name: IV Saline Lock; Complete Time: 11:45 [facility] 10/26 10:58 Order name: Labs collected and sent; Complete Time: 11:45 [facility] 10/26 10:58 Order name: NPO; Complete Time: 11:45 [facility] 10/26 10:58 Order name: US 1st Trimest Single 1st Fetus; Complete Time: 12:20 [facility] 10/26 11:27 Order name: Urine Dipstick--Ancillary (enter results); Complete Time: 11:57 eb 10/26 11:27 Order name: Urine --Ancillary (enter results); Complete Time: 11:57 eb 10/26 10:58 Order name: Urine Dipstick-Ancillary (obtain specimen); Complete Time: 11:10 [facility] Administered Medications: 12:37 Drug: Cephalexin 500 mg Route: PO; ll1 12:38 Follow up: Response: No adverse reaction; RASS: Alert and Calm (0) ll1 Disposition: 14:35 Co-signature as Attending Physician, Judd Summers MD. rn Disposition: 10/26/20 12:17 Discharged to Home. Impression: Urinary tract infection, site not specified, Threatened . - Condition is Stable. - Discharge Instructions: Threatened Miscarriage, Vaginal Bleeding During , Second Trimester, and Urinary Tract Infection. - Prescriptions for Cephalexin 500 mg Oral Capsule - take 1 capsule by ORAL route every 8 hours for 10 days; 30 capsule. - Medication Reconciliation Form, Thank You Letter, Antibiotic Education, Prescription Opioid Use form. - Follow up: Private Physician; When: 2 - 3 days; Reason: Recheck today's complaints, Continuance of care, Re-evaluation by your physician. Signatures: Dispatcher [employer] Patricia Sanchez RN RN sv Mickail, Joel, PA PA [facility] Judd Summers MD MD rn Lewis, Lynsay, RN RN ll1 Corrections: (The following items were deleted from the chart) 12:39 12:17 10/26/2020 12:17 Discharged to Home. Impression: Urinary tract infection, site ll1 not specified; Threatened . Condition is Stable. Forms are Medication Reconciliation Form, Thank You Letter, Antibiotic Education, Prescription Opioid Use. Follow up: Private Physician; When: 2 - 3 days; Reason: Recheck today's complaints, Continuance of care, Re-evaluation by your physician. [facility]
--- NOTE | 2020-10-26 12:18 | ER ---
Nurse's Notes [facility] Name: Suze Mckeon Age: 30 yrs Sex: Female : 1990 Arrival Date: 10/26/2020 Time: 10:27 Bed 4 Private MD: Diagnosis: Urinary tract infection, site not specified;Threatened Presentation: 10/26 10:36 Chief complaint: Patient states: vaginal bleeding only when she urinates, has spots on sv her pad since 0600 today. Pt is 13 weeks . Coronavirus screen: Client denies travel out of the [place] in the last 14 days. At this time, the client does not indicate any symptoms associated with coronavirus-19. Ebola Screen: No symptoms or risks identified at this time. Initial Sepsis Screen: Does the patient meet any 2 criteria? No. Patient's initial sepsis screen is negative. Does the patient have a suspected source of infection? No. Patient's initial sepsis screen is negative. Risk Assessment: Do you want to hurt yourself or someone else? Patient reports no desire to harm self or others. Onset of symptoms was October 26, 2020. 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 Historical: - Allergies: 10:38 Latex, Natural Rubber; sv - PMHx: 10:38 None; sv - PSHx: 10:38 None; sv - Immunization history:: Flu vaccine is not up to date. - Social history:: Smoking status: Patient denies any tobacco usage or history of. Patient/guardian denies using street drugs. Screenin:40 Abuse screen: Denies threats or abuse. Denies injuries from another. Nutritional ph screening: No deficits noted. Tuberculosis screening: No symptoms or risk factors identified. Fall Risk None identified. Assessment: 10:38 General: Appears in no apparent distress. comfortable, well groomed, Behavior is calm, ph cooperative, appropriate for age. Pain: Complains of pain in suprapubic area. Neuro: Level of Consciousness is awake, alert, obeys commands, Oriented to person, place, time, situation. Cardiovascular: Capillary refill < 3 seconds in bilateral fingers Patient's skin is warm and dry. Respiratory: Airway is patent Respiratory effort is even, unlabored. GI: No signs and/or symptoms were reported involving the gastrointestinal system. : Reports cramping, vaginal bleeding that is light flow, spotty. Derm: Skin is intact, is healthy with good turgor, Skin is pink, warm \T\ dry. Musculoskeletal: Circulation, motion, and sensation intact. Range of motion: intact in all extremities. 11:40 Reassessment: Patient and/or family updated on plan of care and expected duration. Pain ll1 level reassessed. 12:38 Reassessment: No changes from previously documented assessment. Patient and/or family ll1 updated on plan of care and expected duration. Pain level reassessed. Patient is alert, oriented x 3, equal unlabored respirations, skin warm/dry/pink. Vital Signs: 10:36 BP 114 / 64; Pulse 80; Resp 16; Temp 97.8; Pulse Ox 100% ; Weight 69.85 kg; Height 5 sv ft. 4 in. (162.56 cm); 11:48 BP 108 / 49; Pulse 70; Resp 18; Pulse Ox 100% on R/A; ph 12:37 BP 119 / 60; Pulse 75; Resp 17; Pulse Ox 100% ; ll1 10:36 Body Mass Index 26.43 (69.85 kg, 162.56 cm) sv ED Course: 10:27 Patient arrived in ED. rg4 10:32 Gerson Pineda PA is PHCP. [facility] 10:32 Judd Summers MD is Attending Physician. [facility] 10:32 Va Gutierrez, DALJIT is Primary Nurse. ph 10:37 Triage completed. sv 10:38 Arm band placed on. sv 10:40 Patient has correct armband on for positive identification. Call light in reach. Side ph rails up X 1. Pulse ox on. NIBP on. Door closed. Noise minimized. Warm blanket given. 11:20 Initial lab(s) drawn, by me, sent to lab. Urine collected: clean catch specimen, blood ph tinged. Inserted saline lock: 20 gauge in left antecubital area, using aseptic technique. Blood collected. 12:03 US 1st Trimest Single 1st Fetus In Process Unspecified. EDMS 12:10 Ultrasound completed. Patient tolerated well. Notified RENTAL SALES ASSOCIATE/JAJA oneal. sg3 12:37 IV discontinued, intact, bleeding controlled, No redness/swelling at site. Pressure ll1 dressing applied. 12:37 No provider procedures requiring assistance completed. ll1 Administered Medications: 12:37 Drug: Cephalexin 500 mg Route: PO; ll1 12:38 Follow up: Response: No adverse reaction; RASS: Alert and Calm (0) ll1 Outcome: 12:17 Discharge ordered by MD. pereira 12:37 Discharged to home ambulatory. ll1 12:37 Condition: stable 12:37 Discharge instructions given to patient, Instructed on discharge instructions, follow up and referral plans. medication usage, Demonstrated understanding of instructions, follow-up care, medications, Prescriptions given X 1. 12:39 Patient left the ED. ll1 Signatures: Dispatcher [employer] EDPatricia Rawls, RN RN Gerson Arroyo PA PA jmm Hall, Patricia, RN RN ph Garcia, Rubi [facility] [place]3 Chris Joe RN RN ll1
[2020-10-26] MEDS ORDERED: CEPHALEXIN 250 MG CAP ONE (12:43)
[2020-10-28 09:56] VITALS: TEMP 97.8; O2SAT 100
[2020-10-28 09:58] VITALS: BP 119/60
== END 2020-10-26 12:39 | disposition home or self-care (01) ==
LOC: ER 10:24
DX: O20.0 Threatened abortion (principal); O23.41 Unspecified infection of urinary tract in pregnancy, first trimester; Z3A.13 13 weeks gestation of pregnancy; Z91.040 Latex allergy status
CPT/HCPCS: 36415; 76801; 80048; 81003; 81015; 81025; 84702; 85025; 86900; 86901; 99284

== ENCOUNTER 2022-11-08 10:48 | Emergency (ER) | payer SELFPAY ==
--- OUTSIDE RECORDS SUMMARY | 2022-11-08 10:52 | XMS REPORT | Continuity of Care Document ---
:1990 Author Organization [facility] t Address [address] [place] [address] Care Team Providers Name Role Phone Angela Tuttle MD Primary Care Physician ANGELA TTUTLE Attending Clinician Unavailable JUAN GREENE Attending Clinician Unavailable Leslie Cao Attending Clinician LESLIE SMITH Attending Clinician Unavailable MATT ATKINS Attending Clinician Unavailable MATT ATKINS Attending Clinician Unavailable KIRSTIN REGAN Attending Clinician Unavailable Lab, Ang - Db Attending Clinician Unavailable Doctor Unassigned, [place] Attending Clinician Unavailable Angela Tuttle MD Attending Clinician JUDIE SALVADOR Attending Clinician Unavailable ANGELA TUTTLE Admitting Clinician Unavailable JUDIE SALVADOR Admitting Clinician Unavailable DONN THOMAS Admitting Clinician Unavailable LESLIE SMITH Admitting Clinician Unavailable Payers Payer Name Policy Type Policy Number Effective Date Expiration Date S [facility] [place] [id number] 2020 00:00:00 MULTIPLAN GENERIC [id number] 2022 00:00:00 COMMERCIAL [id number] 2022 2022 NON-CONTRACT 00:00:00 00:00:00 GENERIC Fan[employer] [id number] 2020 00:00:00 Problems Condition Condition Condition Status Onset Resolution Last Treating Co mments Source Name Details Category Date Date Treatment Clinician Date Absence of Absence of Disease Active U nivers menstruati menstruati 5-24 it y of on on 00:: [place] [facility] Dysuria Dysuria Disease Active Univers 5-24 ity of 00:: [place] [facility] Sterilizat Sterilizat Disease Active Overview : Univers ion ion 7-12 Formattin ity of consult consult 00:00: g of this [place] note Medical might be Branch different from the original. Added automatic ally from request for surgery [id number] Insomnia, Insomnia, Disease Active Uni vers unspecifie unspecifie 04-29 it y of d type d type 00:00: [place] [facility] Disease Active U nivers care and care and 04-29 ity of examinatio examinatio 00:00: [place] n 00 Medical immediatel immediatel Br anch y after y after delivery delivery Depression Depression Disease Active U nivers , , 6 ity of unspecifie [place]specifie [place] Medical depression depression Br anch type type Insulin Insulin Disease Active Univers controlled controlled - it y of gestationa gestationa 00:[place] diabetes l diabetes 00 Me dical mellitus mellitus Branch (GDM) (GDM) during during , , antepartum antepartum Gastroesop Gastroesop Disease Active U nivers hageal hageal - ity of reflux reflux 00:00: [place] disease disease 00 Medical without without Branch esophagiti esophagiti s s Constipati Constipati Disease Active U nivers on, on, 02-26 ity of unspecifie unspecifie [place] 00 Medical constipati constipati Br anch on type on type Dizziness Dizziness Disease Active Uni vers 1-06 ity of 00:00: [place] [facility] 39 weeks 39 weeks Disease Active Unive rs gestation gestation 11-29 ity of of of 00:00: [place] 00 [facility] Multiparit Multiparit Disease Active U nivers y y 8-09 ity of 00:00: [place] [facility] Maternal Maternal Disease Active Unive rs varicella, varicella, 6 it y of non-immune non-immune 00:00[place] [facility] Rubella Rubella Disease Active Univers non-immune non-immune 04-15 it y of status, status, 00:00: [place] antepartum antepartum 00 Me dical Branch Supervisio Supervisio Disease Active U nivers n of other n of other 6-07 it y of high risk high risk 00:00[place] , , 00 Me dical antepartum antepartum Br anch Supervisio Supervisio Disease Active 2012-11 U nivers n of other n of other 2-05 it y of normal normal 00:00: [place] 00 [facility] Diet Diet Disease Resolve 2021-03-12 2021-03-12 Univers controlled controlled d 4-16 00:00:00 22:29:50 ity of gestationa gestationa 00:00[place] diabetes l diabetes 00 Me dical mellitus mellitus [place] (GDM), (GDM), antepartum antepartum Tubal Tubal Disease Resolve 2017-01-31 2017-01-31 Univers ligation ligation d 11-29 00:00:00 14:51:02 it y of status status 00:00: [place] 00 [facility] Liveborn Liveborn Disease Resolve 2017-01-31 2017-01-31 Univers infant, of infant, of d 11-29 00:00:00 14:51:02 [place]y of [place] , , 00 Me dical born in born in [facility] by vaginal by vaginal delivery delivery Sterilizat Sterilizat Disease Resolve 2015-112016-11-29 2016-11-29 Univers ion ion d 11-29 00:00:00 13:38:20 ity of consult consult 00:00: [place] 00 Medical Branch Pelvic Pelvic Disease Resolve 2015-112016-11-29 2016-11-29 Univers pressure pressure d 1- 00:00:00 13:38:21 it y of in in 00:00: [place] , , 00 Me dical antepartum antepartum Br anch , third , third trimester trimester Leg cramps Leg cramps Disease Resolve 2016-11-29 2016-11-29 Univers in in d 07-06 00:00:00 13:38:13 [place] of 00:[place] History of History of Disease Resolve 2016-11-29 2016-11-29 Univers miscarriag miscarriag d 06-15 00:00:00 13:38:25 ity of e, e, 00:00: [place] currently currently 00 [facility] Branch History of History of Disease Resolve 2016-11-29 2016-11-29 Univers d 04-13 00:00:00 13:38:26 ity of delivery, delivery, 00:[place] 00 [facility] Branch Vaginal Vaginal Disease Resolve 2016-11-29 2016-11-29 Univers bleeding bleeding d 04-13 00:00:00 13:37:59 it y of in in 00:00: [place] , , 00 Me dical first first Branch trimester trimester Immune to Immune to Disease Resolve 2012-112016-04-15 2016-04-15 Univers varicella varicella d 12-13 00:00:00 13:49:00 ity of 00:00: [place] 00 Medical Branch Rubella Rubella Disease Resolve 2012-112016-04-13 2016-04-13 Univers non-immune non-immune d 12-13 00:00:00 15:04:02 ity of status, status, 00:00: [place] antepartum antepartum 00 Me dical Branch Chlamydia Chlamydia Disease Resolve 2012-112016-04-13 2016-04-13 Univers trachomati trachomati d 12-13 00:00:00 15:03:58 ity of s s 00:00: [place] infection infection 00 Medi karrie of lower of lower Branch genitourin genitourin michael sites michael sites Irregular Irregular Disease Resolve 2012-112013-10-30 2013-10-30 Univers periods/me periods/me d 12-12 00:00:00 15:41:30 ity of nstrual nstrual 00:00: [place] cycles cycles [facility] BV BV Disease Resolve 2012-112013-10-30 2013-10-30 Univers (bacterial (bacterial d 12-12 00:00:00 15:41:24 ity of vaginosis) vaginosis) [place]: [place] [facility] Allergies, Adverse Reactions, Alerts Allergy Allergy Status Severity Reaction(s) Onset Inactive Treating Comm ents Source Name Type Date Date Clinician Latex Propensi Active Hives 2012-11 Univers ty to 2-05 ity of adverse 00:00: [place] reaction 00 Medical s Branch LATEX DRUG Active Hives 2012-11 Univers INGREDI 2-05 ity of 00:00: [place] 00 [facility] Social History Social Habit Start Date Stop Date Quantity Comments Source ASSERTION 2020-08-10 [facility] 00:00:00 [facility] Exposure to 2022-05-14 2022-05-24 Not sure [facility] SARS-CoV-2 00:00:00 14:58:00 [facility] (event) [place] Tobacco use and 2022-05-24 2022-05-24 Smokeless tobacco Un iversity of exposure 00:00:00 00:00:00 non-user [facility] Alcohol intake 2022-05-24 2022-05-24 0 /d [facility] 00:00:00 00:00:00 [facility] Education 2021-03-30 2021-03-30 10 [facility] 00:00:00 00:00:00 [facility] Sex Ass[birth year] At [birth year] Universit y of 00:00:00 00:00:00 [facility] Smoking Status Start Date Stop Date Source Never smoked tobacco [facility] Medications Ordered Filled Start Stop Current Ordering Indication Dosage Frequency Signature Comments Components Source Medication Medication Date Date Medication? Clinician (SIG) Name Name doxepin 50 Yes [id number] 50mg Take 1 Univers mg capsule 7-18 capsule by ity of 00:00: mouth in [place] [id number] the Medical morning Branch and 1 capsule in the evening. traZODone Yes [id number] 100mg Take 2 U nivers 50 mg 7-18 tablets by ity of tablet 00:00: mouth at [place] 00 bedtime as Medical needed for Branch Insomnia. doxepin 50 2021- No [id number] 50mg Take 1 Univers mg capsule 03-1918 capsule by it y of 00:00: 00:00 mouth at [place] 00 :00 bedtime. Medical Branch traZODone 2021- No [id number] 50mg Take 1 U nivers 50 mg 03-1918 tablet by ity of tablet 00:00: 00:00 mouth at [place] 00 :00 bedtime. Medical Branch DULoxetine 2021- No [id number] 30mg Take 1 Univers 30 mg 01-1818 capsule by ity of capsule 00:00: 00:00 mouth [place] 00 :00 daily. Medical Branch ibuprofen Yes [id number] 800mg Take 1 Univers 800 mg 7-23 tablet by ity of tablet 00:00: mouth [place] 00 every 8 Medical (eight) Branch hours as needed for Pain (scale 1-3). esomeprazol Yes Gastroesoph 40mg Take 1 Univers e (NEXIUM) 4-22 ageal capsule by it y of 40 mg 00:00: reflux mouth [place] capsule 00 disease daily with Med ical without breakfast. Branch esophagitis insulin NPH Yes Insulin 10U inject 10 Univers (NOVOLIN N 4-22 controlled Units it y of NPH U-100 00:00: gestational under the [place] INSULIN) 00 diabetes skin every M edical 100 unit/mL mellitus morning. Branch injection (GDM) during , antepartum insulin NPH Yes Insulin 8U inject 8 Univers (NOVOLIN N 4-22 controlled Units it y of NPH U-100 00:00: gestational under the [place] INSULIN) 00 diabetes skin at Medi karrie 100 unit/mL mellitus bedtime. Branch injection (GDM) during , antepartum blood sugar Yes Check Unive rs diagnostic 4-07 glucose ity of (FREESTYLE 00:00: levels 4 x [place] LITE 00 per day Medical STRIPS) Branch strip Blood-Gluco Yes Use as Univ ers se Meter 4-07 directed ity of (FREESTYLE 00:00: [place] LITE METER) 00 Medical Kit Branch Lancets Yes Check Univers Misc 4-07 glucose ity of 00:00: levels 4 x [place] 00 Per day Medical Branch polyethylen Yes Constipatio 17g Take 17 g Univers e glycol 4-05 n, by mouth ity of 3350 17 00:00: unspecified every 24 [place] gram/dose 00 constipatio (twenty-fo Medical powder n type ur) hours Branch as needed for Constipati on. polyethylen Yes TAKE 17 Uni vers e glycol 4-05 GRAMS BY ity of 3350 17 00:00: MOUTH [place] gram powder 00 EVERY 24 Medi karrie HOURS Branch NEEDED FOR CONSTIPATI ON ferrous Yes Anemia of 325mg Take 1 Un hernan sulfate 402 mother in tablet by it y of (IRON, 00:00: , [place] FERROUS 00 antepartum daily. Medi karrie SULFATE,) Branch 325 mg (65 mg iron) tablet ascorbic Yes Anemia of 500mg Take 1 U nivers acid, 4-02 mother in tablet by ity of vitamin C, 00:00: , mouth [place] 500 mg 00 antepartum daily. Medic al tablet Take daily Branch with iron. docusate Yes Anemia of 100mg Take 1 U nivers (COLACE) 402 mother in capsule by ity of 100 mg 00:00: , mouth 2 [place] capsule 00 antepartum (two) Medic al times Branch daily as needed for Constipati on. 2019-11 Yes Encounter 1{tbl} Take 1 Univers vit w/iron 2-07 for tablet by ity of fumarate 00:00: Nexplanon mouth Abdifatah as and FA 00 removal daily. Medical ( Branch VITAMIN WITH MINERALS) tablet Immunizations Ordered Filled Immunization Date Status Comments [facility] e Immunization Name Name Varicella 2016-12-29 Completed University (varivax)(chicken 00:00:00 [place] M edical pox) Branch Varicella 2016-12-29 Completed [facility] (varivax)(chicken 00:00:00 [place] M edical pox) Branch MMR 2016-11-30 Completed University of 00:00:00 [facility] Varicella 2016-11-30 Completed [place] of (varivax)(chicken 00:00:00 [place] M edical pox) Branch MMR 2016-11-30 Completed University of 00:00:00 [facility] Varicella 2016-11-30 Completed University (varivax)(chicken 00:00:00 [place] M edical pox) Branch TD 2011-04-22 Completed [facility] 00:00:00 [facility] TD 2011-04-22 Completed [facility] 00:00:00 [facility] Vital Signs Vital Name Observation Time Observation Value Comments Source Systolic blood 2022-05-24 20:25:00 100 mm[Hg] [facility] Diastolic blood 2022-05-24 20:25:00 67 mm[Hg] [facility] Heart rate 2022-05-24 20:25:00 75 /min Universi ty [facility] Body height 2022-05-24 20:25:00 162[facility]6 [facility] weight 2022-05-24 20:25:00 63.866 [facility] BMI 2022-05-24 20:25:00 24.17 kg/m2 [facility] Oxygen saturation in 2022-05-24 20:25:00 99 /min [facility] Arterial blood by [facility] Pulse oximetry Branch Systolic blood 2021-03-12 18:05:00 108 [facility]Hg[facility] blood 2021-03-12 18:05:00 71 mm[Hg] [facility] rate 2021-03-12 18:05:00 99 /min Universi [facility] Body temperature 2021-03-12 18:05:00 36.5 [place] [facility] Respiratory rate 2021-03-12 18:05:00 18 /min [facility] Body height 2021-03-12 18:05:00 162.6 cm Universi ty [facility] Body weight 2021-03-12 18:05:00 76.114 [facility] BMI 2021-03-12 18:05:00 28.80 kg/m2 [facility] Procedures Procedure Date / Time Performed Performing Clinician Sourc e NON-STRESS TEST 2021-03-12 22:30:13 [facility] POCT URINALYSIS W/O 2021-03-12 18:12:00 [facility]RAVITY Medical Branch Plan of Care Planned Activity Planned Date Details Comments Source Future Scheduled 2022-01-27 Creatinine [facility] Test 00:00:00 measurement Medical Branch (procedure) [code = 44162609] Future Scheduled 2021-08-21 [facility]00 (procedure) [code = Medical Branch [id number]] Future Scheduled 2021-07-08 [facility] (Season Ended) [code Medical Branch = INFLUENZA VACCINE (Season Ended)] Future Scheduled 2021-04-22 DTaP,Tdap,and Td Univers [facility] Test 00:00:00 Vaccines (2 - Td) Medical Br anch [code = DTaP,Tdap,and Td Vaccines (2 - Td)] Future Scheduled 2020-02-03 Screening for [facility] Test 00:00:00 malignant neoplasm of Medica l Branch cervix (procedure) [code = 251760829] Future Scheduled 2007 Diabetic foot [facility] Test 00:00:00 examination Medical Branch (regime/therapy) [code = 782121483] Future Scheduled 2005 SARS-CoV-2 (COVID-19) [facility]00 Vaccine (1) [code = Medical Branch SARS-CoV-2 (COVID-19) Vaccine (1)] Future Scheduled 1999 Examination of retina [facility] 00:00:00 (procedure) [code = Medical Branch 286568021] Future Scheduled 1999 Calculated low [facility] Test 00:00:00 density lipoprotein Medical Branch cholesterol level (procedure) [code = 313582757] Future Scheduled 1999 Microalbumin [facility] Test 00:00:00 measurement, urine, Medical Branch quantitative (procedure) [code = 754452993] Future Scheduled 1990 Hemoglobin A1c [facility] Test 00:00:00 measurement Medical Branch (procedure) [code = 55291430] Encounters Start End Encounter Admission Attending Care Care Encounter Source Date/Time Date/Time Type Type Clinicians Facility Department ID 2021-09-07 Outpatient R ANGELA TUTTLE [facility] [id number] Univers 10:01:41 ity of [facility] 2021-09-07 Outpatient R ANGELA TUTTLE [facility] [employer] [facility] [id number] Univers 07:36:30 ity of [facility] 2021-09-06 Outpatient P [facility] [id number] Univers 21:54:11 ity of [facility] 2021-09-06 Outpatient P [facility] [id number] Univers 20:48:59 ity of [facility] 2021-09-06 Outpatient X [facility] [id number] Univers 19:26:13 ity of [facility] 2021-09-06 Emergency [facility] [id number] Univers 19:22:03 ity of [facility] 2021-09-06 Outpatient P [facility] [id number] Univers 10:47:00 ity of [facility] 2021-09-06 Outpatient P [facility] [id number] Univers 10:39:54 ity of [facility] 2021-09-06 Outpatient P [facility] [id number] Univers 10:28:11 ity of [facility] 2021-09-06 Outpatient P [facility] [id number] Univers 08:00:03 ity of [facility] 2021-09-05 Outpatient P [facility] [id number] Univers 19:00:41 ity of [facility] 2021-09-05 Outpatient P [facility] [id number] Univers 18:57:39 ity of [facility] 2022-06-07 2022-06-07 Outpatient R RAMONA [facility] [id number] Univers 10:15:00 10:15:00 JUAN ity [facility] 2022-05-24 2022-05-24 [facility] [id number] Univers 15:30:00 16:16:36 Visit Leslie [employer] [id number] it y of [place] [id number] Abdifatah as GERSON?BLEA [id number] [address] MEDICAL OFFICE BUILDING 2022-05-24 2022-05-24 Outpatient R SARAH [facility] [id number] Univers 15:30:00 16:16:36 LESLIE ity [facility] 2022-05-242022-05-24 Outpatient R SARAH [facility] [id number] Univers 15:30:00 15:30:00 LESLIEAUBREY hudson [facility] 2022-05-17 2022-05-17 Outpatient R WILBERT MATT [facility] B [id number] Univers 00:00:00 00:00:00 MATT ATKINS [facility] 2022-05-13 2022-05-13 Outpatient R SARAH [facility] [id number] Univers 10:30:00 10:30:00 LESLIE ity [facility] 2022-05-07 2022-05-07 [facility] [id number] Univers 10:30:00 10:30:00 LESLIE ity [facility] 2022-05-06 2022-05-06 [facility] [id number] Univers 00:00:00 00:00:00 Leslie [employer] [id number] it y of [place] [id number] Abdifatah as GERSON?BLEA [id number] [address] MEDICAL OFFICE BUILDING 2022-04-26 2022-04-26 Outpatient R SHEREEN [facility] [id number] Univers 10:15:00 10:15:00 KIRSTIN stanislawedith [facility] 2022-04-15 2022-04-15 Outpatient R MATT ATKINS [facility] B [id number] Univers 00:00:00 00:00:00 MATT ATKINS [facility] 2022-03-29 2022-03-29 Outpatient R MATT ATKINS [facility] B [id number] Univers 16:30:00 16:57:46 MATT ATKINSedith [facility] 2022-03-29 2022-03-29 [facility] [id number] Univers 16:30:00 16:57:46 Visit Matt ORTEZ [id number] it y of [place] [id number] [place] [facility] [id number] [address] 2022-03-29 2022-03-29 Outpatient R MATT ATKINS [facility] B [id number] Univers 16:30:00 16:57:46 MATT ATKINS [facility] 2022-03-22 2022-03-22 Outpatient R SARAH [facility] [id number] Univers 08:30:00 08:30:00 LESLIEAUBREY hudson [facility] 2022-03-22 2022-03-22 Outpatient R SARAH, [facility] [id number] Univers 08:30:00 08:30:00 LESLIE hudson [facility] 2022-03-22 2022-03-22 [facility] [id number] Univers 08:30:00 08:30:00 LESLIE hudson [facility] 2022-03-19 2022-03-19 [facility] [id number] Univers 13:30:00 14:22:25 LESLIEAUBREY hudson [facility] 2022-03-19 2022-03-19 [facility] [id number] Univers 13:30:00 14:22:25 Visit Leslie [employer] [id number] it y of [place] [id number] Abdifatah as GERSON?BLEA [id number] [address] MEDICAL OFFICE BUILDING 2022-02-16 2022-02-16 [facility] [id number] Univers 11:30:00 11:30:00 LESLIE hudson [facility] 2022-02-08 2022-02-08 [facility] [id number] Univers 00:00:00 00:00:00 Leslie [employer] [id number] it y of [facility] [id number] Abdifatah as GERSON?BLEA [id number] [address] MEDICAL OFFICE BUILDING 2021-11-10 2021-11-10 [facility] [id number] Univers 15:30:00 16:13:29 LESLIE itedith [facility] 2021-11-10 2021-11-10 [facility] [id number] Univers 15:30:00 16:13:29 Visit Leslie HEALTH [id number] it y of [facility] [id number] Abdifatah as GERSON?BLEA [id number] [address] OFFICE [facility] 2021-11-10 2021-11-10 [facility] [id number] Univers 15:30:00 16:13:29 LESLIE hudson [facility] 2021-11-02 2021-11-02 [facility] [id number] Univers 00:00:00 00:00:00 Leslie HEALTH [id number] it y of [place] [id number] Abdifatah as GERSON?BLEA [id number] [address] OFFICE [facility] 2021-10-13 2021-10-13 [facility] [id number] Univers 14:30:00 15:42:02 LESLIE hudson [facility] 2021-10-13 2021-10-13 Office [facility] [id number] Univers 13:47:24 15:42:[address] [facility] [id number] it y of [place] [id number] Abdifatah as GERSON?BLEA [id number] [address] OFFICE [facility] 2021-09-21 2021-09-21 [facility] [id number] Univers 11:09:47 23:59:00 LESLIE itedith [facility] 2021-09-21 2021-09-21 [facility] [id number] Univers 11:00:00 23:59:00 Encounter Leslie GILBERTTON [id number] ity of [place] [id number] [place] 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, Ang - Db [facility] [id number] Univers 11:23:07 11:38:07 Visit Leslie Smith [id number] ity of [facility] [id number] Abdifatah as GERSON?BLEA [id number] [facility] [address] [place] MEDICAL OFFICE BUILDING 2021-09-07 2021-09-07 Outpatient Jake SMITH [facility] [id number] Univers 07:30:00 07:30:00 LESLIE hudson [facility] 2021-09-07 2021-09-07 Outpatient Jake SMITH [facility] [id number] Univers 07:30:00 07:30:00 LESLIE hudson [facility] 2021-09-04 2021-09-04 [facility] [id number] Univers 13:01:02 13:48:41 Visit Leslie BARNETT [id number] it y of [facility] [id number] Abdifatah as GERSON?BLEA [id number] [facility] [address] [place] MEDICAL OFFICE [facility] 2021-09-04 2021-09-04 Outpatient Jake SMITH [facility] [id number] Univers 13:00:00 13:48:41 LESLIE hudson [facility] 2021-09-04 2021-09-04 Outpatient R SARAH [facility] [id number] Univers 13:00:00 13:00:00 LESLIE hudson [facility] 2021-09-04 2021-09-04 Orders Doctor REICH [id number] Univers 00:00:00 00:00:00 Only Unassigned, SHANTAL [id number] ity of [place] [facility] [id number] Abdifatah as [id number] [facility] 009 [place] 2021-06-082021-06-08 Outpatient R ANGELA TUTTLE [facility] [id number] Univers 15:15:00 15:15:00 ity of [facility] 2021-05-28 2021-05-28 Outpatient R ANGELA TUTTLE [facility] [id number] Univers 13:30:00 13:30:00 ity of [facility] 2021-05-27 2021-05-27 Outpatient R ANGELA TUTTLE [facility] [id number] Univers 11:00:00 11:00:00 ity of [facility] 2021-05-25 2021-05-25 Outpatient R ANGELA TUTTLE [facility] [id number] Univers 11:00:00 11:00:00 ity [facility] 2021-05-20 2021-05-20 Outpatient R ANGELA TUTTLE [facility] [id number] Univers 11:00:00 11:00:00 ity [facility] 2021-05-18 2021-05-18 Outpatient R ANGELA TUTTLE [facility] [id number] Univers 08:45:00 08:45:00 ity of [facility] 2021-05-12 2021-05-12 Outpatient R ANGELA TUTTLE [facility] [id number] Univers 11:00:00 11:00:00 ity [facility] 2021-04-27 2021-04-27 Outpatient R ANGELA TUTTLE [facility] [id number] Univers 14:45:00 14:45:00 ity [facility] 2021-04-09 2021-04-09 Outpatient R ANGELA TUTTLE [facility] [id number] Univers 13:00:00 13:00:00 ity of [facility] 2021-04-03 2021-04-03 Outpatient R ANGELA TUTTLE [facility] [id number] Univers 14:30:00 14:30:00 ity of [facility] 2021-04-02 2021-04-02 Outpatient R ANGELA TUTTLE [facility] [id number] Univers 13:00:00 13:00:00 ity of [facility] 2021-04-02 2021-04-02 Outpatient R ANGELA TUTTLE [facility] [id number] Univers 13:00:00 13:00:00 ity [facility] 2021-04-02 2021-04-02 Outpatient R ANGELA TUTTLE [facility] [id number] Univers 13:00:00 13:00:00 ity of [facility] 2021-03-30 2021-03-30 Outpatient R [facility] [id number] Univers 13:00:00 13:00:00 ity of [facility] 2021-03-26 2021-03-26 Outpatient R ANGELA TUTTLE [facility] [id number] Univers 13:00:00 14:17:26 ity of [facility] 2021-03-26 2021-03-26 Outpatient R ANGELA TUTTLE [facility] [id number] Univers 13:00:00 13:00:00 ity [facility] 2021-03-24 2021-03-24 Outpatient P [facility] [id number] Univers 11:00:00 11:00:00 ity [facility] 2021-03-23 2021-03-23 Outpatient R [facility] [id number] Univers 13:00:00 13:00:00 ity of [facility] 2021-03-19 2021-03-19 Outpatient R ANGELA TUTTLE [facility] [id number] Univers 13:00:00 13:00:00 ity [facility] 2021-03-16 2021-03-16 Outpatient R [facility] [id number] Univers 13:00:00 13:00:00 ity [facility] 2021-03-12 2021-03-12 Outpatient R ANGELA TUTTLE [facility] [id number] Univers 13:00:00 13:00:00 ity [facility] 2021-03-09 2021-03-09 Outpatient R [facility] [id number] Univers 13:00:00 13:00:00 ity [facility] 2021-03-05 2021-03-05 Outpatient R ANGELA TUTTLE [facility] [id number] Univers 13:15:00 13:15:00 ity [facility] 2021-02-26 2021-02-26 Outpatient R ANGELA TUTTLE [facility] [id number] Univers 09:15:00 09:15:00 ity [facility] 2021-02-25 2021-02-25 Outpatient R [facility] [id number] Univers 10:15:00 10:15:00 ity of [facility] 2021-02-24 2021-02-24 Outpatient P [facility] [id number] Univers 11:00:00 11:00:00 ity [facility] 2021-02-19 2021-02-19 Outpatient R ANGELA TUTTLE [facility] [id number] Univers 13:45:00 13:45:00 ity of [facility] 2021-02-16 2021-02-16 Outpatient R ANGELA TUTTLE [facility] [id number] Univers 08:45:00 08:45:00 ity [facility] 2021-02-12 2021-02-12 Outpatient R [facility] [id number] Univers 10:00:00 10:00:00 ity [facility] 2021-02-09 2021-02-09 Outpatient R ANGELA TUTTLE [facility] [id number] Univers 13:45:00 13:45:00 ity of [facility] 2021-02-04 2021-02-04 Outpatient R ANGELA TUTTLE [facility] [id number] Univers 09:00:00 09:00:00 ity [facility] 2021-01-20 2021-01-20 Outpatient R ANGELA TUTTLE [facility] [id number] Univers 13:00:00 13:00:00 ity [facility] 2021-01-19 2021-01-19 Outpatient R ANGELA TUTTLE [facility] [id number] Univers 08:15:00 08:15:00 ity [facility] 2021-01-08 2021-01-08 Outpatient R ANGELA TUTTLE [facility] [id number] Univers 16:15:00 16:15:00 ity [facility] 2020-12-16 2020-12-16 Outpatient P [facility] [id number] Univers 10:00:00 10:00:00 ity [facility] 2020-12-11 2020-12-11 Outpatient R ANGELA TUTTLE [facility] [id number] Univers 08:00:00 08:00:00 ity of [facility] 2020-12-08 2020-12-08 Outpatient P [facility] [id number] Univers 09:00:00 09:00:00 ity of [facility] 2020-11-13 2020-11-13 Outpatient R [facility] [id number] Univers 09:00:00 09:00:00 ity of [facility] 2020-11-12 2020-11-12 Outpatient R ANGELA TUTTLE [facility] [id number] Univers 16:00:00 16:00:00 ity of [facility] 2020-11-12 2020-11-12 Outpatient R ANGELA TUTTLE [facility] [id number] Univers 13:30:00 13:30:00 ity [facility] 2020-11-10 2020-11-10 Outpatient R ANGELA TUTTLE [facility] [id number] Univers 14:45:00 14:45:00 ity [facility] 2020-10-13 2020-10-13 Office Angela Tuttle [facility] [id number] 09:56:00 10:47:24 Visit [place] [id number] [place] [id number] Professio [id number] [address] 2020-10-13 2020-10-13 Outpatient R ANGELA TUTTLE [facility] [id number] Univers 10:00:00 10:00:00 ity [facility] 2020-10-13 2020-10-13 Orders Doctor RACHANA [id number] 00:00:00 00:00:00 Only Unassigned, SHANTAL [id number] [place] [facility] [id number] 2020-10-09 2020-10-09 Outpatient R [facility] [id number] Univers 14:00:00 14:00:00 ity [facility] 2020-10-08 2020-10-08 Outpatient R JUDIE SALVADOR [facility] [id number] Univers 09:00:00 09:00:00 ity [facility] 2020-08-22 2020-08-22 Outpatient R ANGELA TUTTLE [facility] [id number] Univers 08:30:00 08:30:00 [facility] 2020-08-21 2020-08-21 Outpatient R ANGELA TUTTLE [facility] [id number] Univers 14:30:00 14:30:00 [facility] 2020-08-21 2020-08-21 Outpatient R ANGELA TUTTLE [facility] [id number] Univers 08:45:00 08:45:00 [facility] Results Test Description Test Time Test Comments Results Result Sourc e Comments NON-STRESS 2021-03-12 Time Universi ty of TEST 22:33:02 [id number]. NST [facility] karrie is reactive [place] and reassuring. Baseline 120, moderate variability, +accelerations , no decelerations. [place] is quiet. POCT URINALYSIS W/O SPECIFIC GRAVITY 2021-03-12 18:12:00 Test Item Value Reference Range Interpretation Comme nts POCT PH U (test code = 3254) N/A 5-8 POCT U LEUK EST (test code = 3263) N/A Negative - Negative POCT U NIT (test code = 3262) N/A Negative - Negative POCT U PROT (test code = 3259) Negative Negative - Negative POCT U GLU (test code = 3256) 100 Negative - Negative POCT U KETONE (test code = 3258) N/A Negative - Negative POCT U BLD (test code = 3257) N/A Negative - Negative Lab Interpretation (test code = 55730-9) Normal [facility]
[2022-11-08 13:19] LABS: SARS-COV-2 RT PCR NEGATIVE (NEGATIVE)
--- NOTE | 2022-11-08 13:32 | EDPHYS ---
Physician Documentation [facility] Name: Suze Mckeon Age: 32 yrs Sex: Female : 1990 Arrival Date: 11/08/2022 Time: 10:55 Bed DIS3 Private MD: ED Physician Patricia Kohler HPI: 11/08 11:40 This 32 yrs old Female presents to ER via Ambulatory with complaints of Fever, jh7 Congestion. 11:40 The patient reports fever, that was measured at 101.6 degrees Fahrenheit. Onset: The jh7 symptoms/episode began/occurred yesterday. Associated signs and symptoms: Pertinent positives: cough, runny nose, Pertinent negatives: abdominal pain, diarrhea, pulling at ears, shortness of breath. 32 y/o f presents with fever, runny nose, and cough since yesterday. Reports that her son has similar symptoms. Reports that she took Tylenol at 4 AM. Denies any other symptoms at this time.. Historical: - Allergies: 12:00 Latex, Natural Rubber; ss - Home Meds: 12:00 None [Active]; ss - PMHx: 12:00 None; ss - PSHx: 12:00 tubal ligation; ss ROS: 11:40 Eyes: Negative for injury, pain, redness, and discharge, Neck: Negative for injury, jh7 pain, and swelling, Cardiovascular: Negative for chest pain, palpitations, and edema, Abdomen/GI: Negative for abdominal pain, nausea, vomiting, diarrhea, and constipation, Back: Negative for injury and pain, MS/Extremity: Negative for injury and deformity, Skin: Negative for injury, rash, and discoloration, Neuro: Negative for headache, weakness, numbness, tingling, and seizure. 11:40 Constitutional: Positive for fever, Negative for poor PO intake. 11:40 ENT: Positive for nasal discharge. 11:40 Respiratory: Positive for cough, Negative for shortness of breath, wheezing. 11:40 All other systems are negative. Exam: 11:40 Constitutional: This is a well developed, well nourished patient who is awake, alert, jh7 and in no acute distress. Head/Face: Normocephalic, atraumatic. Cardiovascular: Regular rate and rhythm with a normal S1 and S2. No gallops, murmurs, or rubs. Normal PMI, no JVD. No pulse deficits. Respiratory: Lungs have equal breath sounds bilaterally, clear to auscultation and percussion. No rales, rhonchi or wheezes noted. No increased work of breathing, no retractions or nasal flaring. Abdomen/GI: Soft, non-tender, with normal bowel sounds. No distension or tympany. No guarding or rebound. No evidence of tenderness throughout. Back: No spinal tenderness. No costovertebral tenderness. Full range of motion. Skin: Warm, dry with normal turgor. Normal color with no rashes, no lesions, and no evidence of cellulitis. MS/ Extremity: Pulses equal, no cyanosis. Neurovascular intact. Full, normal range of motion. Neuro: Awake and alert, GCS 15, oriented to person, place, time, and situation. Motor strength 5/5 in all extremities. Sensory grossly intact. Normal gait. 11:40 ENT: Nose: nasal drainage, and is seen coming from both nares, that is clear, Posterior pharynx: Postnasal drainage. Vital Signs: 12:00 Resp 14; Weight 68.04 kg; Height 5 ft. 4 in. (162.56 cm); Pain 0/10; ss 12:02 BP 106 / 56; Pulse 67; Temp 98.0(TE); Pulse Ox 100% on R/A; ss 12:00 Body Mass Index 25.75 (68.04 kg, 162.56 cm) MDM: 10:56 Patient medically screened. [facility] 13:25 Differential diagnosis: viral Infection, URI. Data reviewed: vital signs, nurses notes. [facility] Data interpreted: Pulse oximetry: is 100 %. Interpretation: normal. Counseling: I had a detailed discussion with the patient and/or guardian regarding: the historical points, exam findings, and any diagnostic results supporting the discharge/admit diagnosis, to return to the emergency department if symptoms worsen or persist or if there are any questions or concerns that arise at home. 11/08 10:59 Order name: COVID-19/FLU A+B/RSV; Complete Time: 13:22 [facility] Administered Medications: No medications were administered Disposition Summary: 11/08/22 13:30 Discharge Ordered Location: Home [facility] Problem: new [facility] Symptoms: are unchanged [facility] Condition: Stable [facility] Diagnosis - Acute upper respiratory infection, unspecified [facility] Followup: [facility] - With: Private Physician - When: 2 - 3 days - Reason: Recheck today's complaints Discharge Instructions: - Discharge Summary Sheet 7 - Upper Respiratory Infection, Adult 7 - Viral Respiratory Infection [facility] Forms: - Work release form ap3 - Medication Reconciliation Form [facility] - Thank You Letter [facility] Prescriptions: - Bromfed DM 2-30-10 mg/5 mL Oral syrup - take 10 milliliter by ORAL route every 4 hours As needed; 240 milliliter; [facility] Refills: 0, Product Selection Permitted - ProAir HFA 90 mcg/actuation Inhalation HFA aerosol inhaler - inhale 2 puff by INHALATION route every 4-6 hours As needed; 1 Inhaler; [facility] Refills: 0, Product Selection Permitted Addendum: 11/11/2022 22:32 STAFF ATTESTATION STATEMENT: I was immediately available onsite in the emergency s d2 department for consultation in the care of this patient. I did not see or examine this patient. Patricia Kohler MD. Signatures: Dispatcher [employer] EDRadha Rene, DALJIT RN ss Asuncion Alberto, HOUSING RELOCATION HOUSING RELOCATION [facility] Patricia Kohler MD MD sd2 Corrections: (The following items were deleted from the chart) 11/08 13:14 11:40 [id number]-hwv male presents with fever, runny nose, and cough since yesterday. Mom jh7 reports that temperature of 101.6 at home. Denies nausea or vomiting. Reports last Tylenol was given at 4 AM.. [facility]
--- NOTE | 2022-11-08 13:32 | ER ---
Nurse's Notes [facility] Name: Suze Mckeon Age: 32 yrs Sex: Female : 1990 Arrival Date: 11/08/2022 Time: 10:55 Bed DIS3 Private MD: Diagnosis: Acute upper respiratory infection, unspecified Presentation: 11/08 12:00 Chief complaint: Patient states: fever and congestion that started today. Coronavirus ss screen: Client denies travel out of the [place] in the last 14 days. Ebola Screen: Patient denies exposure to infectious person. Patient denies travel to an Ebola-affected area in the 21 days before illness onset. Initial Sepsis Screen: Does the patient meet any 2 criteria? No. Patient's initial sepsis screen is negative. Does the patient have a suspected source of infection? No. Patient's initial sepsis screen is negative. Risk Assessment: Do you want to hurt yourself or someone else? Patient reports no desire to harm self or others. Onset of symptoms was November 08, 2022. 12:00 Method Of Arrival: Ambulatory ss 12:00 Acuity: HANH 4 Historical: - Allergies: 12:00 Latex, Natural Rubber; ss - Home Meds: 12:00 None [Active]; ss - PMHx: 12:00 None; - PSHx: 12:00 tubal ligation; Vital Signs: 12:00 Resp 14; Weight 68.04 kg; Height 5 ft. 4 in. (162.56 cm); Pain 0/10; 12:02 BP 106 / 56; Pulse 67; Temp 98.0(TE); Pulse Ox 100% on R/A; 12:00 Body Mass Index 25.75 (68.04 kg, 162.56 cm) ED Course: 10:55 Patient arrived in ED. mr 10:56 Asuncion Alberto FNP [facility] er 10:56 Patricia Kohler MD is Attending Physician. [facility] er 12:00 Triage completed. 13:51 No provider procedures requiring assistance completed. Patient did not have IV access ss during this emergency room visit. Administered Medications: No medications were administered Outcome: 13:30 Discharge ordered by . [facility] er 13:51 Discharged to home ambulatory, with family. 13:51 Condition: good 13:51 Discharge instructions given to patient, family, Instructed on discharge instructions, follow up and referral plans. medication usage, Demonstrated understanding of instructions, follow-up care, medications, Prescriptions given X 2. 13:51 Patient left the ED. Signatures: Yuki Alex Shelby, RN RN ss Asuncion Alberto, CLAIMS CORRESPONDENCE CLERK CLAIMS CORRESPONDENCE CLERK jh7
[2022-11-08 14:00] VITALS: BP 106/56; TEMP 98; O2SAT 100
== END 2022-11-08 13:51 | disposition home or self-care (01) ==
LOC: ER 10:48
DX: J06.9 Acute upper respiratory infection, unspecified (principal); Z20.822 Contact with and (suspected) exposure to COVID-19
CPT/HCPCS: 0241U; 99282

== ENCOUNTER 2022-11-29 08:42 | Emergency (ER) | payer SELFPAY ==
--- OUTSIDE RECORDS SUMMARY | 2022-11-29 08:46 | XMS REPORT | Continuity of Care Document ---
:1990 Author Organization [facility] t Address [address] [place] [address] Care Team Providers Name Role Phone Angela Tuttle MD Primary Care Physician ANGELA TUTTLE Attending Clinician Unavailable JUAN GREENE Attending Clinician Unavailable Lelsie Cao Attending Clinician LESLIE SMITH Attending Clinician Unavailable MATT ATKINS Attending Clinician Unavailable MATT ATKINS Attending Clinician Unavailable KIRSTIN REGAN Attending Clinician Unavailable Lab, Ang - Db Attending Clinician Unavailable Doctor Unassigned, [place] Attending Clinician Unavailable Angela Tuttle MD Attending Clinician JUDIE SALVADOR Attending Clinician Unavailable ANGELA TUTTLE Admitting Clinician Unavailable JUDIE SALVADOR Admitting Clinician Unavailable DONN THOMAS Admitting Clinician Unavailable LESLIE SMITH Admitting Clinician Unavailable Payers Payer Name Policy Type Policy Number Effective Date Expiration Date [facility] [place] [id number] 2020 00:00:00 MULTIPLAN GENERIC [id number] 2022 00:00:00 COMMERCIAL [id number] 2022 2022 NON-CONTRACT 00:00:00 00:00:00 GENERIC Impulcity [id number] 2020 00:00:00 Problems Condition Condition Condition Status Onset Resolution Last Treating Co mments Source Name Details Category Date Date Treatment Clinician Date Absence of Absence of Disease Active U nivers menstruati menstruati 5-24 it y of on on 00:: [place] [facility] Dysuria Dysuria Disease Active Univers 5-24 ity of 00:: [place] [facility] Sterilizat Sterilizat Disease Active Overview : Univers ion ion 7-12 Formattin ity of consult consult 00:00: g of this [place] note Medical might be Branch different from the original. Added automatic ally from request for surgery [id number] Insomnia, Insomnia, Disease Active Uni vers unspecifie unspecifie 04-29 it y of d type d type 00:00: [place] [facility] Disease Active U nivers care [...] hageal - ity of reflux reflux 00:00: [place] disease disease 00 Medical without without Branch esophagiti esophagiti s s Constipati Constipati Disease Active U nivers on, on, 02-26 ity of unspecifie [place] 00 Medical constipati constipati Br anch on type on type Dizziness Dizziness Disease Active Uni vers 1-06 ity of 00:00: [place] [facility] 39 weeks 39 weeks Disease Active Unive rs gestation gestation 11-29 ity of of of 00:00: [place] 00 [facility] Multiparit Multiparit Disease Active U nivers y y 8-09 ity of 00:00: [place] [facility] Maternal Maternal Disease Active Unive rs varicella, varicella, 6 it y of non-immune non-immune [place] [facility] Rubella Rubella Disease Active Univers non-immune non-immune [...] 2-05 it y of normal normal 00:00: [place] 00 [facility] Diet Diet Disease Resolve 2021-03-12 2021-03-12 Univers controlled controlled d 4-16 00:00:00 22:29:50 [place]y of gestationa gestationa [place] diabetes l diabetes 00 Me dical mellitus mellitus [place] (GDM), (GDM), antepartum antepartum Tubal Tubal Disease Resolve 2017-01-31 2017-01-31 Univers ligation ligation d 11-29 00:00:00 14:51:02 it y of status status 00:00: [place] 00 [facility] Liveborn Liveborn Disease Resolve 2017-01-31 2017-01-31 Univers , of infant, of d 11-29 00:00:00 14:51:02 [place] of [place] , , 00 [place] dical born in born in [facility] by vaginal by vaginal delivery delivery [...] e, e, 00:00: [place] currently currently 00 [facility] Branch History of History of Disease Resolve 2016-11-29 2016-11-29 Univers d 04-13 00:00:00 13:38:26 [place] of delivery, delivery, [place] 00 [facility] Branch Vaginal Vaginal Disease Resolve 2016-11-29 2016-11-29 [...] of nstrual nstrual 00:00: [place] cycles cycles [facility] BV BV Disease Resolve 2012-112013-10-30 2013-10-30 Univers (bacterial (bacterial d 12-12 00:00:00 15:41:24 ity of vaginosis) vaginosis[place] [facility] Allergies, Adverse Reactions, Alerts Allergy Allergy Status Severity Reaction(s) Onset Inactive Treating Comm ents Source Name Type Date Date Clinician Latex Propensi Active Hives 2012-11 Univers ty to 2-05 ity of adverse 00:00: [place] reaction 00 Medical s Branch LATEX DRUG Active Hives 2012-11 Univers INGREDI 2-05 ity of 00:00: [place] 00 [facility] Social History Social Habit Start Date Stop Date Quantity Comments Source ASSERTION 2020-08-10 [facility] 00:00:00 [facility] Exposure to 2022-05-14 2022-05-24 Not sure [facility] SARS-CoV-2 00:00:00 14:58:00 [facility] (event) [place] Tobacco use and 2022-05-24 2022-05-24 Smokeless tobacco Un iversity of exposure 00:00:00 00:00:00 non-user [facility] Alcohol intake 2022-05-24 2022-05-24 0 /d [facility] 00:00:00 00:00:00 [facility] Education 2021-03-30 2021-03-30 10 [facility] 00:00:00 00:00:00 [facility] Sex Ass[birth year] At [birth year] Universit y of 00:00:00 00:00:00 [facility] Smoking Status Start Date Stop Date Source Never smoked tobacco [facility] Medications Ordered Filled Start Stop Current Ordering Indication Dosage Frequency Signature Comments Components Source Medication Medication Date Date Medication? Clinician (SIG) Name Name doxepin 50 Yes [id number] 50mg Take 1 Univers mg capsule 7-18 capsule by ity of 00:00: mouth in [place] [address] the Medical morning Branch and 1 capsule in the evening. traZODone Yes [id number] 100mg Take 2 U nivers 50 mg 7-18 tablets by ity of tablet 00:00: mouth at [place] 00 bedtime as Medical needed for Branch Insomnia. doxepin 50 2021- No [id number] 50mg Take 1 Univers mg capsule 03-1918 capsule by it y of 00:00: 00:00 mouth at [place] 00 :00 bedtime. Medical Branch traZODone 2021- No [id number] 50mg Take 1 U nivers 50 mg 03-1918 tablet by ity of tablet 00:00: 00:00 mouth at [place] 00 :00 bedtime. Medical Branch DULoxetine 2021- No [id number] 30mg Take 1 Univers 30 mg 01-1818 capsule by ity of capsule 00:00: 00:00 mouth [place] 00 :00 daily. Medical Branch ibuprofen Yes [id number] 800mg Take 1 Univers 800 mg 7-23 tablet by ity of tablet 00:00: mouth [place] 00 every 8 Medical (eight) Branch hours as needed for Pain (scale 1-3). insulin NPH Yes Insulin 8U inject 8 Univers (NOVOLIN N 4-22 controlled Units it y of NPH U-100 00:00: gestational under the [place] INSULIN) 00 diabetes skin at Medi karrie 100 unit/mL mellitus bedtime. Branch injection (GDM) during , antepartum esomeprazol Yes Gastroesoph 40mg Take 1 Univers e (NEXIUM) 4- ageal capsule by it y of 40 mg 00:00: reflux mouth [place] capsule 00 disease daily with Med ical without breakfast. Branch esophagitis insulin NPH Yes Insulin 10U inject 10 Univers (NOVOLIN N 4-22 controlled Units it y of NPH U-100 00:00: gestational under the [place] INSULIN) 00 diabetes skin every M edical 100 unit/mL mellitus morning. Branch injection (GDM) during , antepartum blood [...] Immunizations Ordered Filled Immunization Date Status Comments [facility] e Immunization Name Name Varicella 2016-12-29 Completed University (varivax)(chicken 00:00:00 [place] M edical pox) Branch Varicella 2016-12-29 Completed [facility] (varivax)(chicken 00:00:00 [place] M edical pox) Branch MMR 2016-11-30 Completed University of 00:00:00 [facility] Varicella 2016-11-30 Completed [place] of (varivax)(chicken 00:00:00 [place] M edical pox) Branch MMR 2016-11-30 Completed University of 00:00:00 [facility] Varicella 2016-11-30 Completed University (varivax)(chicken 00:00:00 [place] M edical pox) Branch TD 2011-04-22 Completed [facility] 00:00:00 [facility] TD 2011-04-22 Completed [facility] 00:00:00 [facility] Vital Signs Vital Name Observation Time Observation Value Comments Source Systolic blood 2022-05-24 20:25:00 100 mm[Hg] Univer sity of [facility] Diastolic blood 2022-05-24 20:25:00 67 mm[Hg] [facility] Heart rate 2022-05-24 20:25:00 75 /min Universi ty [facility] Body height 2022-05-24 20:25:00 162[facility]6 [facility] weight 2022-05-24 20:25:00 63.866 [facility] [place] [facility] BMI 2022-05-24 20:25:00 24.17 kg/m2 [facility] Oxygen saturation in 2022-05-24 20:25:00 99 /min [facility] Arterial blood by [facility] Pulse oximetry Branch Systolic blood 2021-03-12 18:05:00 108 mm[facility]Hg] [facility] Diastolic blood 2021-03-12 18:05:00 71 mm[facility]Hg[facility] rate 2021-03-12 18:05:00 99 /min Universi [facility] Body temperature 2021-03-12 18:05:00 36.5 [facility] 2021-03-12 18:05:00 18 /min [facility] Body height 2021-03-12 18:05:[address] [facility] Body weight 2021-03-12 18:05:00 76.114 [facility] [place] [facility] BMI 2021-03-12 18:05:00 28.80 kg/m2 [facility] Procedures Procedure Date / Time Performed Performing Clinician Sourc e NON-STRESS TEST 2021-03-12 22:30:13 Angela [facility]uttle [facility] POCT URINALYSIS W/O 2021-03-12 18:12:00 [facility] SPECIFIC GRAVITY Medical Branch Plan of Care Planned Activity Planned Date Details Comments Source Future Scheduled 2022-01-[address] [facility] Test 00:00:00 measurement Medical Branch (procedure) [code = 23442679] Future Scheduled 2021-08-21 [facility]00 (procedure) [code = Medical Branch [id number]] Future Scheduled 2021-07-08 [facility] (Season Ended) [code Medical Branch = INFLUENZA VACCINE (Season Ended)] Future Scheduled 2021-04-22 DTaP,Tdap,and Td Univers [facility] Test 00:00:00 Vaccines (2 - Td) Medical Br anch [code = DTaP,Tdap,and Td Vaccines (2 - Td)] Future Scheduled 2020-02-[address] [facility] Test 00:00:00 malignant neoplasm of Medica l Branch cervix (procedure) [code = 495032869] Future Scheduled [address] [facility] Test 00:00:00 examination Medical Branch (regime/therapy) [code = 277570561] Future Scheduled 2005 SARS-CoV-2 (COVID-19) [facility]00 Vaccine (1) [code = Medical Branch SARS-CoV-2 (COVID-19) Vaccine (1)] Future Scheduled 1999 Examination [facility] 00:00:00 (procedure) [code = Medical Branch [id number]] Future Scheduled 1999 Calculated low [facility] Test 00:00:00 density lipoprotein Medical Branch cholesterol level (procedure) [code = 979328671] Future Scheduled [address] 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 [id number] Univers 10:01:41 ity of [facility] 2021-09-07 Outpatient R ANGELA TUTTLE [facility] VICE [employer] 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 [id number] Univers 07:36:30 ity of [facility] 2021-09-06 Outpatient P [facility] HORTENCIA [id number] Univers 21:54:11 ity of [facility] 2021-09-06 Outpatient P [facility] HORTENCIA [id number] Univers 20:48:59 ity of [facility] 2021-09-06 Outpatient X [facility] [id number] Univers 19:26:13 ity of [facility] 2021-09-06 Emergency [facility] [id number] Univers 19:22:03 ity of [facility] 2021-09-06 Outpatient P [facility] HORTENCIA [id number] Univers 10:47:00 ity of [facility] 2021-09-06 Outpatient P [facility]ORTENC[facility] [id number] Univers 10:39:54 ity of [facility] 2021-09-06 Outpatient P [facility] [id number] Univers 10:28:11 ity of [facility] 2021-09-06 Outpatient P [facility] [id number] Univers 08:00:03 ity of [facility] 2021-09-05 Outpatient P [facility] [id number] Univers 19:00:41 ity of [facility] 2021-09-05 Outpatient P [facility] [id number] Univers 18:57:39 ity of [facility] 2022-06-07 2022-06-07 Outpatient R RAMONA [facility] [id number] Univers 10:15:00 10:15:[address] [facility] 2022-05-24 2022-05-24 Office [facility] [id number] Univers 15:30:00 16:16:36 Visit Leslie Unified [id number] it y of [place] 4.2.7.2.686 Abdifatah as GERSON?BLEA [id number] [address] MEDICAL OFFICE BUILDING 2022-05-24 2022-05-24 Outpatient R SARAH [facility] [id number] Univers 15:30:00 16:16:[address] [facility] 2022-05-242022-05-24 Outpatient R SARAH [facility] [id number] Univers 15:30:00 15:30:[address] [facility] 2022-05-17 2022-05-17 Outpatient R WILBERT MATT [facility] B [id number] Univers 00:00:00 00:00:[address] [facility] 2022-05-13 2022-05-13 Outpatient R SARAH [facility] [id number] Univers 10:30:00 10:30:[address] [facility] 2022-05-07 2022-05-07 [facility] [id number] Univers 10:30:00 10:30:[address] [facility] 2022-05-06 2022-05-06 Telephone [facility] [id number] Univers 00:00:00 00:00:00 Leslie Unified [id number] it y of [place] [id number] Abdifatah as GERSON?BLEA [id number] [address] MEDICAL OFFICE BUILDING 2022-04-26 2022-04-26 Outpatient R SHEREEN [facility] [id number] Univers 10:15:00 10:15:[address] [facility] 2022-04-15 2022-04-15 Outpatient R MATT ATKINS [facility] [id number] Univers 00:00:00 00:00:[address] [facility] 2022-03-29 2022-03-29 Outpatient R MATT ATKINS [facility] [id number] Univers 16:30:00 16:57:[address] [facility] 2022-03-29 2022-03-29 [facility] [id number] Univers 16:30:00 16:57:46 Visit Matt ORTEZ [id number] it y of [place] 4.2.7.2.686 [place] [facility] [id number] [address] 2022-03-29 2022-03-29 Outpatient R MATT ATKINS [facility] [id number] Univers 16:30:00 16:57:[address] [facility] 2022-03-22 2022-03-22 Outpatient R SARAH [facility] [id number] Univers 08:30:00 08:30:[address] [facility] 2022-03-22 2022-03-22 Outpatient R SARAH, [facility] [id number] Univers 08:30:00 08:30:[address] [facility] 2022-03-22 2022-03-22 [facility] [id number] Univers 08:30:00 08:30:[address] [facility] 2022-03-19 2022-03-19 [facility] [id number] Univers 13:30:00 14:22:[address] [facility] 2022-03-19 2022-03-19 Office [facility] [id number] Univers 13:30:00 14:22:25 Visit Leslie Unified 350.1.13.10 it y of [place] 4.2.7.2.686 Abdifatah as GERSON?BLEA [id number] [address] MEDICAL OFFICE BUILDING 2022-02-16 2022-02-16 [facility] [id number] Univers 11:30:00 11:30:[address] [facility] 2022-02-08 2022-02-08 Telephone [facility] [id number] Univers 00:00:00 00:00:00 Leslie Unified [id number] [facility] 4.2.7.2.686 Abdifatah as GERSON?BLEA [id number] [address] MEDICAL OFFICE BUILDING 2021-11-10 2021-11-10 [facility] [id number] Univers 15:30:00 16:13:[address] [facility] 2021-11-10 2021-11-10 Office [facility] [id number] Univers 15:30:00 16:13:29 Visit Leslie HEALTH [id number] it [facility] 4.2.7.2.686 Abdifatah as GERSON?BLEA [id number] [address] OFFICE [facility] 2021-11-10 2021-11-10 [facility] [id number] Univers 15:30:00 16:13:[address] [facility] 2021-11-02 2021-11-02 Telephone [facility] [id number] Univers 00:00:00 00:00:00 Leslie HEALTH [id number] it y of [place] 4.2.7.2.686 Abdifatah as GERSON?BLEA [id number] [address] OFFICE [facility] 2021-10-13 2021-10-13 Out[facility] [id number] Univers 14:30:00 15:42:[address] [facility] 2021-10-13 2021-10-13 Office [facility] [id number] Univers 13:47:24 15:42:02 Visit Leslie [facility] 350.1.13.10 it y of [place] 4.2.7.2.686 Abdifatah as GERSON?BLEA [id number] [address] OFFICE [facility] 2021-09-21 2021-09-21 [facility] [id number] Univers 11:09:47 23:59:[address] [facility] 2021-09-21 2021-09-21 [facility] [id number] Univers 11:00:00 23:59:00 Encounter Leslie [place] 350.1.13.10 ity of [place] 4.2.7.2.686 [place] [facility] [id number] [address] 2021-09-11 2021-09-11 Outpatient R SARAH [facility] [id number] Univers 00:00:00 00:00:[address] [facility] 2021-09-07 2021-09-07 [employer] [facility] Lab, Ang - Db [facility] 1.2.840.1 [id number] Univers 11:23:07 11:38:07 Visit Leslie Smith 350.1.13.10 [facility] 4.2.7.2.686 Abdifatah as GERSON?BLEA [id number] [facility] [address] [place] MEDICAL OFFICE BUILDING 2021-09-07 2021-09-07 Outpatient Jake SMITH [facility] [id number] Univers 07:30:00 07:30:[address] [facility] 2021-09-07 2021-09-07 Outpatient Jake SMITH [facility] [id number] Univers 07:30:00 07:30:[address] [facility] 2021-09-04 2021-09-04 Office [facility] [id number] Univers 13:01:02 13:48:41 Visit Leslie BARNETT 350.1.13.10 it [facility] 4.2.7.2.686 Abdifatah as GERSON?BLEA [id number] [facility] [address] [place] MEDICAL OFFICE [facility] 2021-09-04 2021-09-04 Outpatient Jake SMITH [facility] [id number] Univers 13:00:00 13:48:[address] [facility] 2021-09-04 2021-09-04 Outpatient R SARAH [facility] [id number] Univers 13:00:00 13:00:[address] [facility] 2021-09-04 2021-09-04 Orders Doctor REICH [id number] [id number] Univers 00:00:00 00:00:00 Only Unassigned, SHANTAL 350.1.13.[address] [place] [facility] 4.2.7.2.686 Abdifatah as [id number] [facility] [address] [place] 2021-06-082021-06-08 Outpatient R ANGELA TUTTLE [facility] [id number] Univers 15:15:00 15:15:00 ity of [facility] 2021-05-28 2021-05-28 Outpatient R ANGELA TUTTLE [facility] [id number] Univers 13:30:00 13:30:00 ity of [facility] 2021-05-27 2021-05-27 Outpatient R ANGELA TUTTLE [facility] [id number] Univers 11:00:00 11:00:00 ity of [place] [facility] 2021-05-25 2021-05-25 Outpatient R ANGELA TUTTLE [facility] [id number] Univers 11:00:00 11:00:[address] [facility] 2021-05-20 2021-05-20 Outpatient R ANGELA TUTTLE [facility] [id number] Univers 11:00:00 11:00:[address] [facility] 2021-05-18 2021-05-18 Outpatient R ANGELA TUTTLE [facility] [id number] Univers 08:45:00 08:45:00 ity of [facility] 2021-05-12 2021-05-12 Outpatient R ANGELA TUTTLE [facility] [id number] Univers 11:00:00 11:00:[address] [facility] 2021-04-27 2021-04-27 Outpatient R ANGELA TUTTLE [facility] [id number] Univers 14:45:00 14:45:[address] [facility] 2021-04-09 2021-04-09 Outpatient R ANGELA TUTTLE [facility] [id number] Univers 13:00:00 13:00:00 ity of [place] [facility] 2021-04-03 2021-04-03 Outpatient R ANGELA TUTTLE [facility] [id number] Univers 14:30:00 14:30:00 ity of [place] [facility] 2021-04-02 2021-04-02 Outpatient R ANGELA TUTTLE [facility] [id number] Univers 13:00:00 13:00:00 ity of [place] [facility] 2021-04-02 2021-04-02 Outpatient R ANEGLA TUTTLE [facility] [id number] Univers 13:00:00 13:00:[address] [facility] 2021-04-02 2021-04-02 Outpatient R ANGELA TUTTLE [facility] [id number] Univers 13:00:00 13:00:00 ity of [facility] 2021-03-30 2021-03-30 Outpatient R [facility] [id number] Univers 13:00:00 13:00:00 ity of [place] [facility] 2021-03-26 2021-03-26 Outpatient R ANGELA TUTTLE [facility] [id number] Univers 13:00:00 14:17:26 ity of [facility] 2021-03-26 2021-03-26 Outpatient R ANGELA TUTTLE [facility] [id number] Univers 13:00:00 13:00:[address] [facility] 2021-03-24 2021-03-24 Outpatient P [facility] [id number] Univers 11:00:00 11:00:[address] [facility] 2021-03-23 2021-03-23 Outpatient R [facility] [id number] Univers 13:00:00 13:00:00 ity of [facility] 2021-03-19 2021-03-19 Outpatient R ANGELA TUTTLE [facility] [id number] Univers 13:00:00 13:00:[address] [facility] 2021-03-16 2021-03-16 Outpatient R [facility] [id number] Univers 13:00:00 13:00:[address] [facility] 2021-03-12 2021-03-12 Outpatient R ANGELA TUTTLE [facility] [id number] Univers 13:00:00 13:00:[address] [facility] 2021-03-09 2021-03-09 Outpatient R [facility] [id number] Univers 13:00:00 13:00:[address] [facility] 2021-03-05 2021-03-05 Outpatient R ANGELA TUTTLE [facility] [id number] Univers 13:15:00 13:15:[address] [facility] 2021-02-26 2021-02-26 Outpatient R ANGELA TUTTLE [facility] [id number] Univers 09:15:00 09:15:[address] [facility] 2021-02-25 2021-02-25 Outpatient R [facility] [id number] Univers 10:15:00 10:15:00 ity of [facility] 2021-02-24 2021-02-24 Outpatient P [facility] [id number] Univers 11:00:00 11:00:[address] [facility] 2021-02-19 2021-02-19 Outpatient R ANGELA TTUTLE [facility] [id number] Univers 13:45:00 13:45:00 ity of [place] [facility] 2021-02-16 2021-02-16 Outpatient R ANGELA TUTTLE [facility] [id number] Univers 08:45:00 08:45:[address] [facility] 2021-02-12 2021-02-12 Outpatient R [facility] [id number] Univers 10:00:00 10:00:[address] [facility] 2021-02-09 2021-02-09 Outpatient R ANGELA TUTTLE [facility] [id number] Univers 13:45:00 13:45:00 [facility] 2021-02-04 2021-02-04 Outpatient R ANGELA TUTTLE [facility] [id number] Univers 09:00:00 09:00:[address] [facility] 2021-01-20 2021-01-20 Outpatient R ANGELA TUTTLE [facility] [id number] Univers 13:00:00 13:00:[address] [facility] 2021-01-19 2021-01-19 Outpatient R ANGELA TUTTLE [facility] [id number] Univers 08:15:00 08:15:[address] [facility] 2021-01-08 2021-01-08 Outpatient R ANGELA TUTTLE [facility] [id number] Univers 16:15:00 16:15:[address] [facility] 2020-12-16 2020-12-16 Outpatient P [facility] [id number] Univers 10:00:00 10:00:[address] [facility] 2020-12-11 2020-12-11 Outpatient R ANGELA TUTTLE [facility] [id number] Univers 08:00:00 08:00:00 [facility] 2020-12-08 2020-12-08 Outpatient P [facility] [id number] Univers 09:00:00 09:00:00 [facility] 2020-11-13 2020-11-13 Outpatient R [facility] [id number] Univers 09:00:00 09:00:00 [facility] 2020-11-12 2020-11-12 Outpatient R ANGELA TUTTLE [facility] [id number] Univers 16:00:00 16:00:00 [facility] 2020-11-12 2020-11-12 Outpatient R ANGELA TUTTLE [facility] [id number] Univers 13:30:00 13:30:[address] [facility] 2020-11-10 2020-11-10 Outpatient R ANGELA TUTTLE [facility] [id number] Univers 14:45:00 14:45:[address] [facility] 2020-10-13 2020-10-13 Office Angela Tuttle [facility] [id number] 09:56:00 10:47:24 Visit [place] [id number] [place] [id number] Professio [id number] [address] 2020-10-13 2020-10-13 Outpatient R ANGELA TUTTLE [facility] [id number] Univers 10:00:00 10:00:[address] [facility] 2020-10-13 2020-10-13 Orders Doctor RACHANA [id number] 00:00:00 00:00:00 Only Unassigned, SHANTAL [id number] [place] [facility] [id number] 2020-10-09 2020-10-09 Outpatient R [facility] [id number] Univers 14:00:00 14:00:[address] [facility] 2020-10-08 2020-10-08 Outpatient R JUDIE SALVADOR [facility] [id number] Univers 09:00:00 09:00:[address] [facility] 2020-08-22 2020-08-22 Outpatient R ANGELA TUTTLE [facility] [id number] Univers 08:30:00 08:30:00 [facility] 2020-08-21 2020-08-21 Outpatient R ANGELA TUTTLE [facility] [id number] Univers 14:30:00 14:30:00 [facility] 2020-08-21 2020-08-21 Outpatient R ANGELA TUTTLE [facility] [id number] Univers 08:45:00 08:45:00 [facility] Results Test Description Test Time Test Comments Results Result Sourc e Comments NON-STRESS 2021-03-12 Time Universi ty of TEST 22:33:02 [id number]. N[place] karrie is reactive [place] and reassuring. Baseline 120, moderate variability, +accelerations , no decelerations. [place] is quiet. POCT URINALYSIS W/O SPECIFIC GRAVITY [...] - Negative Lab Interpretation (test code = 60574-9) Normal [facility]
[2022-11-29 09:48] LABS: SARS-COV-2 RT PCR NEGATIVE (NEGATIVE)
[2022-11-29] MEDS ORDERED: predniSONE 20 MG TAB ONE (10:00)
[2022-11-29] MEDS ORDERED: CETIRIZINE HCL 5 MG TABLET ONE (10:00)
[2022-11-29] MEDS ORDERED: FAMOTIDINE 20 MG TAB ONE (10:00)
--- NOTE | 2022-11-29 10:04 | EDPHYS ---
Physician Documentation [facility] Name: Suze Mckeon Age: 32 yrs Sex: Female : 1990 Arrival Date: 11/29/2022 Time: 08:45 Bed 12 Private MD: ED Physician George Carter HPI: 11/29 10:02 This 32 yrs old Female presents to ER via Ambulatory with complaints of Fever, Sore snw Throat. 10:02 The patient reports fever, that was measured at 101.5 degrees Fahrenheit. Onset: The snw symptoms/episode began/occurred suddenly, 3 day(s) ago, and became persistent. Associated signs and symptoms: Pertinent positives: chills, sore throat. The patient has experienced similar episodes in the past. The patient has not recently seen a physician. 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 - Social history:: Smoking status: Patient denies any tobacco usage or history of. ROS: 09:27 Eyes: Negative for injury, pain, redness, and discharge, Neck: Negative for injury, snw pain, and swelling, Cardiovascular: Negative for chest pain, palpitations, and edema, Respiratory: Negative for shortness of breath, cough, wheezing, and pleuritic chest pain, Abdomen/GI: Negative for abdominal pain, nausea, vomiting, diarrhea, and constipation, Back: Negative for injury and pain, : Negative for injury, bleeding, discharge, and swelling, MS/Extremity: Negative for injury and deformity, Skin: Negative for injury, rash, and discoloration, Neuro: Negative for headache, weakness, numbness, tingling, and seizure, Psych: Negative for depression, anxiety, suicide ideation, homicidal ideation, and hallucinations. 09:27 Constitutional: Positive for fever, malaise. 09:27 ENT: Positive for sore throat. Exam: 09:27 Constitutional: This is a well developed, well nourished patient who is awake, alert, snw and in no acute distress. Head/Face: Normocephalic, atraumatic. Eyes: Pupils equal round and reactive to light, extra-ocular motions intact. Lids and lashes normal. Conjunctiva and sclera are non-icteric and not injected. Cornea within normal limits. Periorbital areas with no swelling, redness, or edema. Neck: Trachea midline, no thyromegaly or masses palpated, and no cervical lymphadenopathy. Supple, full range of motion without nuchal rigidity, or vertebral point tenderness. No Meningismus. Chest/axilla: Normal chest wall appearance and motion. Nontender with no deformity. No lesions are appreciated. Cardiovascular: Regular rate and rhythm with a normal S1 and S2. No gallops, murmurs, or rubs. Normal PMI, no JVD. No pulse deficits. Respiratory: Lungs have equal breath sounds bilaterally, clear to auscultation and percussion. No rales, rhonchi or wheezes noted. No increased work of breathing, no retractions or nasal flaring. Abdomen/GI: Soft, non-tender, with normal bowel sounds. No distension or tympany. No guarding or rebound. No evidence of tenderness throughout. Back: No spinal tenderness. No costovertebral tenderness. Full range of motion. Skin: Warm, dry with normal turgor. Normal color with no rashes, no lesions, and no evidence of cellulitis. MS/ Extremity: Pulses equal, no cyanosis. Neurovascular intact. Full, normal range of motion. Neuro: Awake and alert, GCS 15, oriented to person, place, time, and situation. Cranial nerves II-XII grossly intact. Motor strength 5/5 in all extremities. Sensory grossly intact. Cerebellar exam normal. Normal gait. Psych: Awake, alert, with orientation to person, place and time. Behavior, mood, and affect are within normal limits. 09:27 ENT: External ear(s): are unremarkable, Ear canal(s): are normal, TM's: are normal, Nose: is normal, Mouth: is normal, Posterior pharynx: erythema, that is moderate, Voice: is normal. Vital Signs: 08:49 BP 125 / 70; Pulse 97; Resp 16; Temp 98.9; Pulse Ox 100% on R/A; Weight 68.04 kg; ss Height 5 ft. 4 in. (162.56 cm); Pain 05/16; 08:49 Body Mass Index 25.75 (68.04 kg, 162.56 cm) ss MDM: 08:50 Patient medically screened. snw 10:02 Differential diagnosis: viral Infection, bacterial infection, URI. Data reviewed: vital snw signs, nurses notes. Counseling: I had a detailed discussion with the patient and/or guardian regarding: the historical points, exam findings, and any diagnostic results supporting the discharge/admit diagnosis, lab results, the need for outpatient follow up, to return to the emergency department if symptoms worsen or persist or if there are any questions or concerns that arise at home. Special discussion: Based on the history and exam findings, there is no indication for further emergent testing or inpatient evaluation. I discussed with the patient/guardian the need to see the primary care provider for further evaluation of the symptoms. 11/29 08:51 Order name: Strep; Complete Time: 09:22 snw 11/29 08:51 Order name: COVID-19/FLU A+B; Complete Time: 09:49 snw 11/29 09:21 Order name: Throat Culture EDMS Administered Medications: 10:02 Drug: predniSONE 40 mg Route: PO; iw 10:03 Drug: ZyrTEC - Cetirizine 10 mg Route: PO; iw 10:03 Drug: Pepcid (famotidine) 20 mg Route: PO; iw Disposition: 11:22 Co-signature as Attending Physician, George Carter DO I was immediately available on-site ms3 in the Emergency Department for consultation in the care of the patient. Disposition Summary: 11/29/22 10:04 Discharge Ordered Location: Home snw Condition: Stable snw Diagnosis - Acute pharyngitis, unspecified snw Followup: snw - With: Emergency Department - When: As needed - Reason: Worsening of condition Followup: snw - With: Private Physician - When: 2 - 3 days - Reason: Recheck today's complaints, Continuance of care, Re-evaluation by your physician Discharge Instructions: - Discharge Summary Sheet snw - Pharyngitis snw - Sore Throat snw - Rehydration, Adult snw Forms: - Medication Reconciliation Form snw - Thank You Letter snw - Antibiotic Education snw - Prescription Opioid Use snw - Work release form snw Prescriptions: - Zyrtec 10 mg Oral Tablet - take 1 tablet by ORAL route once daily As needed; 20 tablet; Refills: 0, snw Product Selection Permitted - Prednisone 20 mg Oral Tablet - take 2 tablets by ORAL route once daily for 5 days; 10 tablet; Refills: 0, snw Product Selection Permitted - Pepcid 20 mg Oral Tablet - take 1 tablet by ORAL route once daily; 20 tablet; Refills: 0, Product snw Selection Permitted Signatures: Dispatcher [employer] EDRosalina Ulloa, ALUMINUM HYDROXIDE PROCESS OPERATOR-C ALUMINUM HYDROXIDE PROCESS OPERATOR-Csnw Pat Griffin, RN DALJIT iw Radha Crowder RN RN ss George Carter, DO ms3
--- NOTE | 2022-11-29 10:04 | ER ---
Nurse's Notes [facility] Name: Suze Mckeon Age: 32 yrs Sex: Female : 1990 Arrival Date: 11/29/2022 Time: 08:45 Bed 12 Private MD: Diagnosis: Acute pharyngitis, unspecified Presentation: 11/29 08:49 Chief complaint: Patient states: fever since Tuesday and throat on right side hurts ss really bad, thinks she has strep throat again. Coronavirus screen: Client presents with at least one sign or symptom that may indicate coronavirus-19. Ebola Screen: Patient negative for fever greater than or equal to 101.5 degrees Fahrenheit, and additional compatible Ebola Virus Disease symptoms Patient denies exposure to infectious person. Patient denies travel to an Ebola-affected area in the 21 days before illness onset. No symptoms or risks identified at this time. Initial Sepsis Screen: Does the patient meet any 2 criteria? No. Patient's initial sepsis screen is negative. Does the patient have a suspected source of infection? No. Patient's initial sepsis screen is negative. Risk Assessment: Do you want to hurt yourself or someone else? Patient reports no desire to harm self or others. Onset of symptoms was November 27, 2022. 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 - Social history:: Smoking status: Patient denies any tobacco usage or history of. Vital Signs: 08:49 BP 125 / 70; Pulse 97; Resp 16; Temp 98.9; Pulse Ox 100% on R/A; Weight 68.04 kg; ss Height 5 ft. 4 in. (162.56 cm); Pain 7/10; 08:49 Body Mass Index 25.75 (68.04 kg, 162.56 cm) ED Course: 08:45 Patient arrived in ED. 4 08:50 Triage completed. 08:50 [facility]al[facility] Lew [facility]-C [facility] snw 08:50 George Carter DO is Attending Physician. snw 08:50 Arm band placed on. ss 08:54 Pat Griffin, RN is Primary Nurse. iw Administered Medications: 10:02 Drug: predniSONE 40 mg Route: PO; iw 10:03 Drug: ZyrTEC - Cetirizine 10 mg Route: PO; iw 10:03 Drug: Pepcid (famotidine) 20 mg Route: PO; iw Outcome: 10:04 Discharge ordered by MD. snw 10:16 Discharged to home ambulatory. iw 10:16 Condition: good 10:16 Discharge instructions given to patient, Instructed on discharge instructions, follow up and referral plans. medication usage, Demonstrated understanding of instructions, follow-up care, medications, Prescriptions given X 3. 10:16 Patient left the ED. iw Signatures: Rosalina Lew FNP-C INSTRUMENT PANEL ASSEMBLER-Csnw Pat Griffin RN RN Radha Crowder RN RN ss Garcia, Rubi rg4
[2022-11-29 12:02] VITALS: BP 125/70; TEMP 98.9; O2SAT 100
== END 2022-11-29 10:16 | disposition home or self-care (01) ==
LOC: ER 08:42
DX: J02.9 Acute pharyngitis, unspecified (principal); Z20.822 Contact with and (suspected) exposure to COVID-19
CPT/HCPCS: 0240U; 87070; 87081; 99283; J7512

== ENCOUNTER 2023-07-25 06:43 | Emergency (ER) | payer SELFPAY ==
--- OUTSIDE RECORDS SUMMARY | 2023-07-25 06:47 | XMS REPORT | Continuity of Care Document ---
:1990 Author Organization [facility] t Address [address] [facility] [address] [place] [address] Care Team Providers Name Role Phone LESLIE SMITH Primary Care Physician Unavailable ANGELA TUTTLE Attending Clinician Unavailable JUAN GREENE Attending Clinician Unavailable Leslie Cao Attending Clinician LESLIE SMITH Attending Clinician Unavailable MATT ATKINS Attending Clinician Unavailable MATT ATKINS Attending Clinician Unavailable KIRSTIN REGAN Attending Clinician Unavailable Lab, Ang - Db Attending Clinician Unavailable Doctor Unassigned, [place] Attending Clinician Unavailable Angela Tuttle MD Attending Clinician JUDIE SALVADOR Attending Clinician Unavailable ANGELA TUTTLE Admitting Clinician Unavailable JUDIE SALVADOR Admitting Clinician Unavailable DONN THOMAS Admitting Clinician Unavailable LESLIE SMITH Admitting Clinician Unavailable Payers Payer Name Policy Type Policy Number Effective Date Expiration Date [facility] [id number] 2020 00:00:00 MULTIPLAN GENERIC [id number] 2022 00:00:00 COMMERCIAL [id number] 2022 2022 NON-CONTRACT 00:00:00 00:00:00 GENERIC [employer] [id number] 2020 00:00:00 Problems Condition Condition Condition Status Onset Resolution Last Treating Co mments Source Name Details Category Date Date Treatment Clinician Date Absence of Absence of Disease Active U nivers menstruati menstruati -24 it y of on on 00:00: [place] [facility] Dysuria Dysuria Disease Active Univers 5-24 ity of 00:00: [place] [facility] Sterilizat Sterilizat Disease Active Overview : Univers ion ion 7-12 Formattin ity of consult consult 00:00: g of this [place] note Medical might be Branch different from the original. Added automatic ally from request for surgery [id number] Insomnia, Insomnia, Disease Active Uni vers unspecifie unspecifie 04-29 it y of d type d type 00:00: [place] 00 Medical Branch Disease Active U nivers care and care and 04-29 ity [place] examin[place] Medical immediatel immediatel Br anch y after y after delivery delivery Depression Depression Disease Active U nivers , , 6 ity of unspecifie unspecifie [place] Medical depression depression Br anch type type Maternal Maternal Disease Active Unive rs varicella, varicella, 6 it y of non-immune non-immune [place] Allergies, Adverse Reactions, Alerts Allergy Allergy Status Severity Reaction(s) Onset Inactive Treating Comm ents Source Name Type Date Date Clinician Latex Propensi Active Hives 2012-11 Univers ty to 2-05 ity of adverse 00:00: [place] reaction 00 Medical s Branch LATEX DRUG Active Hives 2012-11 Univers INGREDI 2-05 ity of 00:00: [place] 00 Medical Branch Social History Social Habit Start Date Stop Date Quantity Comments Source Exposure to 2022-05-14 2022-05-24 Not sure University of SARS-CoV-2 00:00:00 14:58:00 [place] [facility] (event) Branch Tobacco use and 2022-05-24 2022-05-24 Smokeless tobacco Un iversity of exposure 00:00:00 00:00:00 non-user [facility] Alcohol intake 2022-05-24 2022-05-24 0 /d [facility] 00:00:00 00:00:00 [facility] Education 2021-03-30 2021-03-30 10 [facility] 00:00:00 00:00:00 [facility] Sex Assigned At [birth year] Universit y of 00:00:00 00:00:00 [facility] Smoking Status Start Date Stop Date Source Never smoked tobacco [facility] Medications Ordered Filled Start Stop Current Ordering Indication Dosage Frequency Signature Comments Components Source Medication Medication Date Date Medication? Clinician (SIG) Name Name doxepin 50 Yes [id number] 50mg Take 1 Univers mg capsule 7-18 capsule by ity of 00:00: mouth in [place] 00 the Medical morning Branch and 1 capsule in the evening. traZODone Yes [id number] 100mg Take 2 U nivers 50 mg 7-18 tablets by ity of tablet 00:00: mouth at [place] 00 bedtime as Medical needed for Branch Insomnia. doxepin 50 2021- No [id number] 50mg Take 1 Univers mg capsule 5-13 07-18 capsule by it y of 00:00: 00:00 mouth at [place] 00 :00 bedtime. Medical Branch traZODone 2021- No [id number] 50mg Take 1 U nivers 50 mg 5-13 07-18 tablet by ity of tablet 00:00: 00:00 mouth at [place] 00 :00 bedtime. Medical Branch DULoxetine 2021- No [id number] 30mg Take 1 Univers 30 mg 3-14 07-18 capsule by ity of capsule 00:00: 00:00 mouth [place] 00 :00 daily. Medical Branch ibuprofen Yes [id number] 800mg Take 1 Univers 800 mg 7-23 tablet by ity of tablet 00:00: mouth [place] 00 every 8 Medical (eight) Branch hours as needed for Pain (scale 1-3). Immunizations Ordered Filled Immunization Date Status Comments Sour e Immunization Name Name Varicella 2016-12-29 Completed [facility] (varivax)(chicken 00:00:00 [place] M edical pox) Branch MMR 2016-11-30 Completed [facility] 00:00:00 [facility] Varicella 2016-11-30 Completed [facility] (varivax)(chicken 00:00:00 [place] M edical pox) Branch TDAP 2011-04-22 Completed [facility] 00:00:00 [facility] Vital Signs Vital Name Observation Time Observation Value Comments Source Systolic blood 2022-05-24 20:25:00 100 mm[facility]Hg[facility] [place] Diastolic blood 2022-05-24 20:25:00 67 mm[Hg[facility] Heart rate 2022-05-24 20:25:00 75 /min [facility] Body height 2022-05-24 20:25:00 162.6 cm [facility] Body weight 2022-05-24 20:25:00 63.866 kg [facility] BMI 2022-05-24 20:25:00 24.17 kg/m2 [facility] Oxygen saturation 2022-05-24 20:25:00 99 /min [facility] in Arterial blood [facility] by Pulse oximetry Procedures This patient has no known procedures. Encounters Start End Encounter Admission Attending Care Care Encounter Source Date/Time Date/Time Type Type Clinicians Facility Department ID 2021-09-07 Outpatient ANGELA FELICIANO [facility] COUNTER INTELLIGENCE AGENT [id number] [facility]07 Out[facility] R ANGELA TUTTLE [facility] COUNTER INTELLIGENCE AGENT [id number] [facility] 07:36[facility] 2021-09-06 Outpatient P [facility] HORTENCIA [id number] Univers 21:54:11 ity [facility] 2021-09-06 Outpatient P [facility] HORTENCIA [id number] Univers [facility]:48[facility]-06 Outpatient X [facility] HORTENCIA [id number] Univers 19:26:13 ity [facility] 2021-09-06 Emergency [facility] [id number] Univers 19:22:03 ity [facility] 2021-09-06 Outpatient P [facility] HORTENCIA [id number] Univers 10:47:00 ity of [facility] 2021-09-06 Outpatient P [facility] HORTENCIA [id number] Univers 10:39:54 ity of [facility] 2021-09-06 Outpatient P [facility] HORTENCIA [id number] Univers 10:28:11 ity of [facility] 2021-09-06 Outpatient P [facility] HORTENCIA [id number] Univers 08:00:03 ity of [facility] 2021-09-05 Outpatient P [facility] [id number] Univers 19:00:41 ity of [facility] 2021-09-05 Outpatient P [facility]ORT[facility] [id number] Univers 18:57:39 ity [facility] 2022-06-07 2022-06-07 Outpatient R RAMONA [facility] [id number] Univers 10:15:00 10:15:00 JUAN [facility] 2022-05-24 2022-05-24 [facility] [id number] Univers 15:30:00 16:16:36 [facility] [id number] it y of [place] [id number] Abdifatah as GERSON?BLEA [id number] [address] MEDICAL OFFICE BUILDING 2022-05-24 2022-05-24 Outpatient R SARAH [facility] [id number] Univers 15:30:00 16:16:36 LESLIE [facility] 2022-05-24 2022-05-24 Outpatient R SARAH [facility] [id number] Univers 15:30:00 15:30:00 LESLIE [facility] 2022-05-17 2022-05-17 Outpatient R MATT ATKINS [facility] B [id number] Univers 00:00:00 00:00:00 MATT ATKINS [facility] 2022-05-13 2022-05-13 Outpatient R SARAH [facility] [id number] Univers 10:30:00 10:30:00 LESLIE [facility] 2022-05-07 2022-05-07 Outpatient R SARAH [facility] [id number] Univers 10:30:00 10:30:00 LESLIE hudson [facility] 2022-05-06 2022-05-06 [facility] [id number] Univers 00:00:00 00:00:00 Leslie HEALTH [id number] it y of [place] [id number] Abdifatah as GERSON?BLEA [id number] [address] MEDICAL OFFICE BUILDING 2022-04-26 2022-04-26 Outpatient R SHEREEN [facility] [id number] Univers 10:15:00 10:15:00 KIRSTIN tristan [facility] 2022-04-15 2022-04-15 Outpatient R MATT ATKINS [facility] B [id number] Univers 00:00:00 00:00:00 MATT ATKINS [facility] 2022-03-29 2022-03-29 Outpatient R MATT ATKINS [facility] B [id number] Univers 16:30:00 16:57:46 MATT ATKINS [facility] 2022-03-29 2022-03-29 Office Slick [facility] [id number] Univers 16:30:00 16:57:46 Visit Matt ORTEZ [id number] it y of [place].686 [place] [facility] [id number] [address] 2022-03-29 2022-03-29 Outpatient R MATT ATKINS [facility] B [id number] Univers 16:30:00 16:57:46 MATT ATKINS [facility] 2022-03-22 2022-03-22 Outpatient R SARAH [facility] [id number] Univers 08:30:00 08:30:00 LESLIE [facility]udson [facility] 2022-03-22 2022-03-22 Outpatient R SARAH [facility] [id number] Univers 08:30:00 08:30:00 LESLIE [facility] 2022-03-22 2022-03-22 Outpatient R SARAHTHE [facility] [id number] Univers 08:30:00 08:30:00 LESLIE [facility] 2022-03-19 2022-03-19 Outpatient R [facility] [id number] Univers 13:30:00 14:22:25 LESLIEAUBREY [facility] 2022-03-19 2022-03-19 [facility] [id number] Univers 13:30:00 14:22:25 Visit Leslie HEALTH [id number] it y of [place] 4.2.7.2.686 Abdifatah as GERSON?BLEA [id number] [address] OFFICE [facility] 2022-02-16 2022-02-16 Outpatient R SARAHTHE [facility] [id number] Univers 11:30:00 11:30:00 LESLIE [facility] 2022-02-08 2022-02-08 [facility] [id number] Univers 00:00:00 00:00:00 Leslie HEALTH [id number] it y of [place] 4.2.7.2.686 Abdifatah as GERSON?BLEA [id number] [address] MEDICAL OFFICE [facility] 2021-11-10 2021-11-10 Outpatient R SARAH [facility] [id number] Univers 15:30:00 16:13:29 LESLIE [facility]udson [facility] 2021-11-10 2021-11-10 [facility] [id number] Univers 15:30:00 16:13:29 Visit Leslie HEALTH [id number] it y of [place] 4.2.7.2.686 Abdifatah as GERSON?BLEA [id number] [address] MEDICAL OFFICE [facility] 2021-11-10 2021-11-10 Outpatient R SARAHTHE [facility] [id number] Univers 15:30:00 16:13:29 LESLIE ity [facility] 2021-11-02 2021-11-02 [facility] [id number] Univers 00:00:00 00:00:00 Leslie BARNETT [id number] it [facility] 4.2.7.2.686 Abdifatah as GERSON?BLEA [id number] [facility] 0[address] [facility] OFFICE [facility] 2021-10-13 2021-10-13 Outpatient R SARAHTHE [facility] [id number] Univers 14:30:00 15:42:02 LESLIE [facility]udson [facility] 2021-10-13 2021-10-13 Office [facility] [id number] Univers 13:47:24 15:42:02 Visit Leslie BARNETT [id number] it y [facility] 4.2.7.2.686 Abdifatah as GERSON?BLEA [id number] [address] OFFICE [facility] 2021-09-21 2021-09-21 Outpatient R SARAHTHE [facility] [id number] Univers 11:09:47 23:59:00 LESLIE [facility]udson [facility] 2021-09-21 2021-09-21 [facility] [id number] Univers 11:00:00 23:59:00 Encounter Leslie AWAD [id number] ity of [place] 4.2.7.2.686 [place] [facility] [id number] [address] 2021-09-11 2021-09-11 Outpatient R SARAHTHE [facility] [id number] Univers 00:00:00 00:00:00 LESLIE [facility] 2021-09-07 2021-09-07 Die Designer Apprentice Lab, Adal - Hai [facility] [id number] Univers 11:23:07 11:38:07 Visit Leslie Smith 350.1.13.10 ity of [facility] 4.2.7.2.686 Abdifatah as GERSON?BLEA [id number] [facility] [address] MEDICAL OFFICE BUILDING 2021-09-07 2021-09-07 Outpatient R SARAH [facility] [id number] Univers 07:30:00 07:30:00 LESLIE [facility]udson [facility] 2021-09-07 2021-09-07 Outpatient R SARAH [facility] [id number] Univers 07:30:00 07:30:00 LESLIE [facility]udson [facility] 2021-09-04 2021-09-04 [facility] [id number] Univers 13:01:02 13:48:41 Visit Leslie BARNETT 350.1.13.10 it y of [place] 4.2.7.2.686 Abdifatah as GERSON?BLEA [id number] [place] [address] MEDICAL OFFICE [facility] 2021-09-04 2021-09-04 Outpatient R DANYASAMIR [facility] [id number] Univers 13:00:00 13:48:41 LESLIE [facility] 2021-09-04 2021-09-04 Outpatient Jake [facility] [id number] Univers 13:00:00 13:00:00 LESLIE [facility]udson [facility] 2021-09-04 2021-09-04 Orders Doctor REICH [id number] Univers 00:00:00 00:00:00 Only Unassigned, SHANTAL 350.1.13.10 ity of [place] [facility] [id number] Abdifatah as [id number] [address] 2021-06-08 2021-06-08 Outpatient R ANGELA TUTTLE [facility] [id number] Univers 15:15:00 15:15:00 ity [facility] 2021-05-28 2021-05-28 Outpatient R ANGELA TUTTLE [facility] [id number] Univers 13:30:00 13:30:00 ity [facility] 2021-05-27 2021-05-27 Outpatient R ANGELA TUTTLE [facility] [id number] Univers 11:00:00 11:00:00 ity [facility] 2021-05-25 2021-05-25 Outpatient R ANGELA TUTTLE [facility] [id number] Univers 11:00:00 11:00:00 ity of [facility] 2021-05-20 2021-05-20 Outpatient R ANGELA TUTTLE [facility] [id number] Univers 11:00:00 11:00:00 ity of [facility] 2021-05-18 2021-05-18 Outpatient R ANGELA TUTTLE [facility] [id number] Univers 08:45:00 08:45:00 ity of [facility] 2021-05-12 2021-05-12 Outpatient R FISHANGELA [facility] [id number] Univers 11:00:00 11:00:00 ity of [facility] 2021-04-27 2021-04-27 Outpatient R ANGELA TUTTLE [facility] [id number] Univers 14:45:00 14:45:00 ity of [facility] 2021-04-09 2021-04-09 Outpatient R ANGELA TUTTLE [facility] [id number] Univers 13:00:00 13:00:00 ity of [facility] 2021-04-03 2021-04-03 Outpatient R FISHANGELA [facility] [id number] Univers 14:30:00 14:30:00 ity of [facility] 2021-04-02 2021-04-02 Outpatient R ANGELA TUTTLE [facility] [id number] Univers 13:00:00 13:00:00 ity of [facility] 2021-04-02 2021-04-02 Outpatient R ANGELA TUTTLE [facility] [id number] Univers 13:00:00 13:00:00 ity of [facility] 2021-04-02 2021-04-02 Outpatient R ANGELA TUTTLE [facility] [id number] Univers 13:00:00 13:00:00 ity of [facility] 2021-03-30 2021-03-30 Outpatient R [facility] [id number] Univers 13:00:00 13:00:00 ity [facility] 2021-03-26 2021-03-26 Outpatient R ANGELA TUTTLE [facility] [id number] Univers 13:00:00 14:17:26 ity of [facility] 2021-03-262021-03-26 Outpatient R ANGELA TUTTLE [facility] [id number] Univers 13:00:00 13:00:00 ity of [facility] 2021-03-24 2021-03-24 Outpatient P [facility] [id number] Univers 11:00:00 11:00:00 ity of [facility] 2021-03-23 2021-03-23 Outpatient R [facility] [id number] Univers 13:00:00 13:00:00 ity of [facility] 2021-03-19 2021-03-19 Outpatient R ANGELA TUTTLE [facility] [id number] Univers 13:00:00 13:00:00 ity [facility] 2021-03-16 2021-03-16 Outpatient R [facility] [id number] Univers 13:00:00 13:00:00 ity [facility] 2021-03-12 2021-03-12 Outpatient R ANGELA TUTTLE [facility] [id number] Univers 13:00:00 13:00:00 ity [facility] 2021-03-09 2021-03-09 Outpatient R [facility] [id number] Univers 13:00:00 13:00:00 ity [facility] 2021-03-05 2021-03-05 Outpatient R ANGELA TUTTLE [facility] [id number] Univers 13:15:00 13:15:00 ity [facility] 2021-02-26 2021-02-26 Outpatient R ANGELA TUTTLE [facility] [id number] Univers 09:15:00 09:15:00 ity of [facility] 2021-02-25 2021-02-25 Outpatient R [facility] [id number] Univers 10:15:00 10:15:00 ity of [facility] 2021-02-24 2021-02-24 Outpatient P [facility] [id number] Univers 11:00:00 11:00:00 ity [facility] 2021-02-19 2021-02-19 Outpatient R ANGELA TUTTLE [facility] [id number] Univers 13:45:00 13:45:00 ity [facility] 2021-02-16 2021-02-16 Outpatient R FISH, ANGELA [facility] [id number] Univers 08:45:00 08:45:00 ity of [facility] 2021-02-12 2021-02-12 Outpatient R [facility] [id number] Univers 10:00:00 10:00:00 ity of [facility] 2021-02-09 2021-02-09 Outpatient R ANGELA TUTTLE [facility] [id number] Univers 13:45:00 13:45:00 ity of [facility] 2021-02-04 2021-02-04 Outpatient R FISHANGELA [facility] [id number] Univers 09:00:00 09:00:00 ity of [facility] 2021-01-20 2021-01-20 Outpatient R ANGELA TUTTLE [facility] [id number] Univers 13:00:00 13:00:00 ity of [facility] 2021-01-19 2021-01-19 Outpatient R ANGELA TUTTLE [facility] [id number] Univers 08:15:00 08:15:00 ity of [facility] 2021-01-08 2021-01-08 Outpatient R FISHANGELA [facility] [id number] Univers 16:15:00 16:15:00 ity of [facility] 2020-12-16 2020-12-16 Outpatient P [facility] [id number] Univers 10:00:00 10:00:00 ity of [facility] 2020-12-11 2020-12-11 Outpatient R ANGELA TUTTLE [facility] [id number] Univers 08:00:00 08:00:00 ity of [facility] 2020-12-08 2020-12-08 Outpatient P [facility] [id number] Univers 09:00:00 09:00:00 ity of [facility] 2020-11-13 2020-11-13 Outpatient R [facility] [id number] Univers 09:00:00 09:00:00 ity of [facility] 2020-11-12 2020-11-12 Outpatient R FISHANGELA [facility] [id number] Univers 16:00:00 16:00:00 ity of [facility] 2020-11-12 2020-11-12 Outpatient R ANGELA TUTTLE [facility] [id number] Univers 13:30:00 13:30:00 ity [facility] 2020-11-10 2020-11-10 Outpatient R ANGELA TUTTLE [facility] [id number] Univers 14:45:00 14:45:00 ity [facility] 2020-10-13 2020-10-13 Office Angela Tuttle [facility] [id number] 09:56:00 10:47:24 Visit [place] [id number] [place] [id number] Professio [id number] 2020-10-13 2020-10-13 Outpatient R ANGELA TUTTLE [facility] [id number] Univers 10:00:00 10:00:00 ity [facility] 2020-10-13 2020-10-13 Orders Doctor RACHANA [id number] 00:00:00 00:00:00 Only Unassigned, SHANTAL 350.1.13.10 [place] [facility] [id number] [id number] 2020-10-09 2020-10-09 Outpatient R [facility] [id number] Univers 14:00:00 14:00:00 ity of [facility] 2020-10-08 2020-10-08 Outpatient R JUDIE SALVADOR [facility] [id number] Univers 09:00:00 09:00:00 ity [facility] 2020-08-22 2020-08-22 Outpatient R ANGELA TUTTLE [facility] [id number] Univers 08:30:00 08:30:00 ity of [facility] 2020-08-21 2020-08-21 Outpatient R ANGELA TUTTLE [facility] [id number] Univers 14:30:00 14:30:00 ity [facility] 2020-08-21 2020-08-21 Outpatient R ANGELA TUTTLE [facility] [id number] Univers 08:45:00 [facility] This patient has no known results.
--- NOTE | 2023-07-25 08:07 | ER ---
Nurse's Notes [facility] Name: Suze Mckeon Age: 32 yrs Sex: Female : 1990 Arrival Date: 07/25/2023 Time: 06:43 Bed 7 Private MD: Diagnosis: Pain in throat;Fever, unspecified Presentation: 07/25 06:58 Chief complaint: Patient states: sore throat, and fever. Coronavirus screen: At this jw7 time, the client does not indicate any symptoms associated with coronavirus-19. Ebola Screen: No symptoms or risks identified at this time. Initial Sepsis Screen: Does the patient meet any 2 criteria? No. Patient's initial sepsis screen is negative. Does the patient have a suspected source of infection? No. Patient's initial sepsis screen is negative. Risk Assessment: Do you want to hurt yourself or someone else? Patient reports no desire to harm self or others. Onset of symptoms was July 23, 2023. 06:58 Method Of Arrival: Ambulatory [facility] 06:58 Acuity: HANH 4 jw7 Triage Assessment: 07:00 General: Appears in no apparent distress. comfortable, Behavior is calm, cooperative. jw7 Pain: Complains of pain in throat Pain does not radiate. Pain currently is 8 out of 10 on a pain scale. Quality of pain is described as burning, gnawing, stinging, Pain began 2-3 days ago. Is continuous. EENT: Throat is reddened Reports pain when swallowing. Neuro: No deficits noted. Garcia Agitation-Sedation Scale (RASS): 0 - Alert and Calm Level of Consciousness is awake, alert, obeys commands, Oriented to person, place, time, situation. Cardiovascular: No deficits noted. Capillary refill < 3 seconds Clubbing of nail beds is absent JVD is absent Patient's skin is warm and dry. Respiratory: No deficits noted. Airway is patent Trachea midline Respiratory effort is even, unlabored, Respiratory pattern is regular, symmetrical. GI: No deficits noted. No signs and/or symptoms were reported involving the gastrointestinal system. : No deficits noted. No signs and/or symptoms were reported regarding the genitourinary system. Derm: No deficits noted. No signs and/or symptoms reported regarding the dermatologic system. Musculoskeletal: No deficits noted. No signs and/or symptoms reported regarding the musculoskeletal system. [employer]: 07:03 LMP 06/21/2023 jw7 Historical: - Allergies: 07:00 Latex, Natural Rubber; jw7 - PSHx: 07:00 tubal ligation; jw7 - Immunization history:: Adult Immunizations up to date, Client reports having NOT received the Covid vaccine. Flu vaccine is up to date. - Social history:: Smoking status: Patient denies any tobacco usage or history of. Screenin:02 [facility] ED Fall Risk Assessment (Adult) History of falling in the last 3 months, jw7 including since admission No falls in past 3 months (0 pts) Score/Fall Risk Level 0 - 2 = Low Risk. Abuse screen: Denies threats or abuse. Denies injuries from another. Nutritional screening: No deficits noted. Tuberculosis screening: No symptoms or risk factors identified. Assessment: 07:28 General: Appears in no apparent distress. uncomfortable, Behavior is calm, cooperative, ko1 appropriate for age. Pain: Complains of pain in throat. 07:28 Neuro: No deficits noted. Cardiovascular: No deficits noted. Respiratory: No deficits ko1 noted. GI: No deficits noted. : No deficits noted. EENT: Throat is reddened Reports sore throat. Derm: No deficits noted. Musculoskeletal: No deficits noted. Vital Signs: 06:58 BP 115 / 64 LA Sitting (auto/reg); Pulse 67 MON; Resp 14 S; Temp 98.8(O); Pulse Ox 100% jw7 on R/A; Weight 63.5 kg; Height 5 ft. 4 in. ; Pain 8/10; 07:15 BP 102 / 54; Pulse 72; Resp 16; Pulse Ox 99% ; ko1 08:06 BP 105 / 62; Pulse 68; Resp 14; Pulse Ox 100% ; ko1 06:58 Body Mass Index 24.03 (63.50 kg, 162.56 cm) jw7 06:58 Pain Scale: Adult jw7 ED Course: 06:46 Patient arrived in ED. jj6 06:50 Reanna Spangler, RN is Primary Nurse. jw7 07:00 Triage completed. jw7 07:01 George Carter DO is Attending Physician. ms3 07:02 Patient has correct armband on for positive identification. Bed in low position. Call [facility] light in reach. 07:03 Arm band placed on. jw7 07:26 Rapid Strep Sent. cp4 07:28 Pulse ox on. NIBP on. Door closed. Noise minimized. Lights dimmed. Warm blanket given. ko1 07:28 Patient did not have IV access during this emergency room visit. ko1 08:06 Aditya Gibson MD is Referral Physician. ms3 08:15 Provided Education on: Sore throat, fever. cp4 08:15 No provider procedures requiring assistance completed. cp4 Administered Medications: No medications were administered Medication: : VIS not applicable for this client. cp4 Outcome: 08:07 Discharge ordered by . ms3 08:15 Discharged to home ambulatory, cp4 08:15 Condition: stable 08:15 Discharge instructions given to patient, Instructed on discharge instructions, follow up and referral plans. Demonstrated understanding of instructions, follow-up care, 08:16 Patient left the ED. cp4 Signatures: George Carter DO DO ms3 Asuncion Quesada jj6 Reanna Spangler RN RN jw7 Missy Griffith, RN RN ko1 Madelyn Calixto cp4
--- NOTE | 2023-07-25 08:07 | EDPHYS ---
Physician Documentation [facility] Name: Suze Mckeon Age: 32 yrs Sex: Female : 1990 Arrival Date: 07/25/2023 Time: 06:43 Bed 7 Private MD: ED Physician George Carter HPI: 07/25 07:20 This 32 yrs old Female presents to ER via Ambulatory with complaints of Fever, Sore ms3 Throat. 07:20 32-year-old female with no past medical history presents for sore throat that began ms3 overnight. Patient endorses slight cough, states she had a temperature of 100.4. Patient states she took Mucinex without relief. Patient states her discomfort is an 8/10 described as burning. Patient states the pain is worse with swallowing and better eating/drinking cold substances. Patient endorses sick contact at work with similar symptoms. [employer]: 07:03 LMP 06/21/2023 jw7 Historical: - Allergies: 07:00 Latex, Natural Rubber; jw7 - PSHx: 07:00 tubal ligation; jw7 - Immunization history:: Adult Immunizations up to date, Client reports having NOT received the Covid vaccine. Flu vaccine is up to date. - Social history:: Smoking status: Patient denies any tobacco usage or history of. ROS: 07:20 Constitutional: Negative for fever, and chills. Neck: Negative for injury, pain, and ms3 swelling, Cardiovascular: Negative for chest pain, and palpitations. Respiratory: Negative for shortness of breath, cough, wheezing, and pleuritic chest pain, Abdomen/GI: Negative for abdominal pain, nausea, vomiting, diarrhea, and constipation, Back: Negative for injury and pain, MS/Extremity: Negative for injury and deformity, Skin: Negative for injury, rash, and discoloration, 07:20 ENT: Positive for sore throat, 07:20 All other systems are negative, Exam: 07:20 Constitutional: This is a well developed, well nourished patient who is awake, alert, ms3 and in no acute distress. Head/Face: Normocephalic, atraumatic. Neck: Trachea midline, no cervical lymphadenopathy. Supple, full range of motion without nuchal rigidity, or vertebral point tenderness. No Meningismus. Chest/axilla: Normal chest wall appearance and motion. Nontender with no deformity. Cardiovascular: Regular rate and rhythm with a normal S1 and S2. No gallops, murmurs, or rubs. Normal PMI, no JVD. No pulse deficits. Respiratory: Lungs have equal breath sounds bilaterally, clear to auscultation and percussion. No rales, rhonchi or wheezes noted. No increased work of breathing, no retractions or nasal flaring. Abdomen/GI: Soft, non-tender, with normal bowel sounds. No distension or tympany. No guarding or rebound. No evidence of tenderness throughout. Skin: Warm, dry with normal turgor. Normal color with no rashes, no lesions, and no evidence of cellulitis. MS/ Extremity: Pulses equal, no cyanosis. Neurovascular intact. Full, normal range of motion. 07:20 ENT: Posterior pharynx: Tonsils: are normal in appearance, no exudate, no ulcerations, ms3 Uvula: normal, swelling, that is mild, erythema, that is mild, peritonsillar mass, is not appreciated, pooling of secretions, is not appreciated, Vital Signs: 06:58 BP 115 / 64 LA Sitting (auto/reg); Pulse 67 MON; Resp 14 S; Temp 98.8(O); Pulse Ox 100% jw7 on R/A; Weight 63.5 kg; Height 5 ft. 4 in. ; Pain 8/10; 07:15 BP 102 / 54; Pulse 72; Resp 16; Pulse Ox 99% ; ko1 08:06 BP 105 / 62; Pulse 68; Resp 14; Pulse Ox 100% ; ko1 06:58 Body Mass Index 24.03 (63.50 kg, 162.56 cm) 7 06:58 Pain Scale: Adult jw7 MDM: 07:14 Patient medically screened. ms3 07:20 Differential diagnosis: viral Infection, Pharyngitis vs Strep. ms3 08:07 Data reviewed: vital signs, nurses notes, lab test result(s), and as a result, I will ms3 discharge patient. Care significantly affected by the following Social Determinants of Health: Poor access to healthcare and/or lack of insurance. Counseling: I had a detailed discussion with the patient and/or guardian regarding the historical points, exam findings, and any diagnostic results supporting the discharge/admit diagnosis, lab results, the need for outpatient follow up, to return to the emergency department if symptoms worsen or persist or if there are any questions or concerns that arise at home. Special discussion: I discussed with the patient/guardian in detail that at this point there is no indication for admission to the hospital. It is understood, however, that if the symptoms persist or worsen the patient needs to return immediately for re-evaluation. ED course: Discussed negative rapid strep result with patient. Antibiotics not indicated at this time. Patient to follow-up with Dr. Gibson in 2 to 3 days for reevaluation. Patient understands agrees with plan. All questions were answered. Return precautions discussed include worsening symptoms, or any other concerns. On reevaluation no signs of retropharyngeal or peritonsillar abscess present, patient is alert and oriented x4, no apparent distress, nontoxic-appearing, speaking full sentences. 08:08 I considered the following discharge prescriptions or medication management in the ms3 emergency department Antibiotics: At this time antibiotics are not recommended. 07/25 07:15 Order name: Rapid Strep ms3 07/25 07:51 Order name: Throat Culture EDMS Administered Medications: No medications were administered Disposition Summary: 07/25/23 08:07 Discharge Ordered Notes: Location: Home ms3 Condition: Stable ms3 Diagnosis - Pain in throat ms3 - Fever, unspecified ms3 Followup: ms3 - With: Aditya Gibson MD - When: 2 - 3 days - Reason: Recheck today's complaints Discharge Instructions: - Discharge Summary Sheet ms3 - Fever, Adult ms3 - Sore Throat ms3 - Sore Throat, [id number] ms3 Forms: - Medication Reconciliation Form ms3 - Thank You Letter ms3 - Antibiotic Education ms3 - Prescription Opioid Use ms3 - Patient Portal Instructions ms3 - Leadership Thank You Letter ms3 - Work release form ko1 Signatures: Dispatcher [employer] EDMS George Carter DO DO ms3 Reanna Spangler RN RN jw7
[2023-07-25 08:59] VITALS: TEMP 98.8
[2023-07-25 09:02] VITALS: BP 105/62; O2SAT 100
== END 2023-07-25 08:16 | disposition home or self-care (01) ==
LOC: ER 06:43
DX: R07.0 Pain in throat (principal); R50.9 Fever, unspecified; Z20.822 Contact with and (suspected) exposure to COVID-19
CPT/HCPCS: 87070; 87081